=== PATIENT | female | born 1955 | race Caucasian/White ===

== ENCOUNTER 2017-08-13 21:00 | Inpatient (IN) | payer OTHER ==
[2017-08-13] MEDS ORDERED: Pantoprazole 80 MG, Admixture Fee 1 EACH in Sodium Chloride 0.9% 100 ML IVP SCH (21:45)
[2017-08-13] MEDS ORDERED: Octreotide Acetate 100 MCG/ML VIAL SLOW IVP SCH (21:45)
[2017-08-13] MEDS ORDERED: Octreotide Acetate 1,250 MCG in Sodium Chloride 0.9% 250 ML 250 ML IVPB SCH ×2 (21:45→23:07)
[2017-08-13] MEDS ORDERED: Octreotide Acetate 100 MCG/ML VIAL ONE (21:46)
[2017-08-13] MEDS ORDERED: Pantoprazole 40 MG VIAL ONE ×2 (21:46→21:51)
[2017-08-13 21:59] LABS: #Basophils 0.1 thou/uL (0.0-0.2); #Eosinphils 0.1 thou/uL (0.0-0.7); #Lymphocytes 1.3 thou/uL (1.20-3.40); #Monocytes 0.6 thou/uL (0.11-0.59); #Neutrophils 6.8 thou/uL (1.40-6.50); %Basophils 0.6 % (0.0-1.0); %Eosinophils 0.7 % (0.0-10.0); %Lymphocytes 14.6 % (21.0-51.0); %Monocytes 7.1 % (0.0-10.0); Mean Platelet Volume 6.5 fL (7.4-10.4); Red Blood Cell (RBC) Count 1.93 mill/uL (4.20-5.40); White Blood Cell (WBC) Count 8.8 thou/uL (4.8-10.8)
[2017-08-13 22:19] LABS: Troponin I Less than 0.010 ng/mL (< 0.028)
[2017-08-13 22:28] LABS: Lactic Acid - Sepsis 1.4 mmol/L (0.5-2.2)
[2017-08-13] MEDS ORDERED: cefTRIAXone\\ROCEPHIN 1 GM VIAL ONE (22:42)
[2017-08-13] MEDS ORDERED: Sodium Chloride 0.9% 100 ML ONE (22:42)
[2017-08-13 23:08] VITALS: BMI 25.4
[2017-08-13] MEDS ORDERED: Multivitamins, Adult 10 ML, Folic Acid 1 MG, Thiamine HCl 100 MG in Dextrose 5 %-0.45 %... IV SCH ×4 (23:59)
[2017-08-14] MEDS: cefTRIAXone\\ROCEPHIN 1 GM in Sodium Chloride 0.9% 100 ML IVPB SCH (00:21)
[2017-08-14 07:32] LABS: #Basophils 0.1 thou/uL (0.0-0.2); #Eosinphils 0.3 thou/uL (0.0-0.7); #Monocytes 0.5 thou/uL (0.11-0.59); #Neutrophils 3.1 thou/uL (1.40-6.50); %Basophils 1.1 % (0.0-1.0); %Eosinophils 4.4 % (0.0-10.0); %Lymphocytes 33.4 % (21.0-51.0); %Monocytes 8.4 % (0.0-10.0); Hematocrit 26.5 % (36.0-47.0); Mean Platelet Volume 6.9 fL (7.4-10.4); Red Blood Cell (RBC) Count 2.84 mill/uL (4.20-5.40); White Blood Cell (WBC) Count 5.9 thou/uL (4.8-10.8)
[2017-08-14] MEDS: Folic Acid 1 MG TAB PO SCH (07:41)
[2017-08-14] MEDS: Magnesium Oxide 400 MG TAB PO SCH (07:41)
[2017-08-14] MEDS: Multivitamin W/ Minerals 1 TAB PO SCH (07:41)
[2017-08-14 07:49] LABS: ALT (SGPT) 10 U/L (8-55); AST (SGOT) 19 U/L (5-34); Alkaline Phosphatase 42 U/L (40-150); Anion Gap 9 mmol/L (10-20); BUN (Urea Nitrogen) 12 mg/dL (9.8-20.1); Bilirubin, Total 1.4 mg/dL (0.2-1.2); Calc. Creatinine Clearance 60 mL/min (70-130); Calcium 7.5 mg/dL (7.8-10.44); Carbon Dioxide 20 mmol/L (23-31); Chloride 112 mmol/L (98-107); Estimated GFR-MDRD 67; Globulin 2.2 g/dL (2.4-3.5); Magnesium 1.9 mg/dL (1.6-2.6); Phosphorus 4.3 mg/dL (2.3-4.7); Protein, Total 4.7 g/dL (6.0-8.3)
--- NOTE | 2017-08-14 08:50 | HP-2 ---
DATE OF ADMISSION: 08/13/2017 TIME: 2200 hours. CODE STATUS: FULL. PRIMARY CARE PHYSICIAN: Spring dee. ATTENDING: Nain Mayen MD RESIDENT: David Watson DO HISTORIAN: Patient. SPECIALIST: GI, Dr. Wells. CHIEF COMPLAINT: Dizziness and weakness. HISTORY OF PRESENT ILLNESS: A 62-year-old female with a history of alcoholic cirrhosis, who presents via transfer from outside emergency department for symptomatic anemia. Hemoglobin at the time of presentation to the outside ER was 4.5. The patient was transfused to 1 unit packed red blood cells in around to our facility. Upon recheck of hemoglobin in our facility, hemoglobin was 6.3. The patient states that she began to notice black tarry stools that became maroon in color approximately 5 days ago. Additionally, she noticed weakness, shortness of breath, and dizziness. This all started approximately the same time. She states that she has had a previous EGD that showed a hiatal hernia; however, apparently no esophageal varices or ulcers were noted at that time. This EGD was approximately 3 years ago. PAST MEDICAL HISTORY: Hypertension, hypothyroid, alcoholic cirrhosis, anemia, hiatal hernia, and H. pylori-associated gastric ulcer. PAST SURGICAL HISTORY: Hysterectomy and hemorrhoid banding. ALLERGIES: No known drug allergies. MEDICATIONS: Levothyroxine 50 mcg daily, Lasix 20 mg b.i.d., spironolactone 50 mg daily, and potassium 20 mEq b.i.d. SOCIAL HISTORY: Previous half pack per day smoker, at least 80-wrbb-[id number] history. Alcohol, 6-12 beers per day. Drugs, none. REVIEW OF SYSTEMS: General: The patient denies fever, chills, changes in appetite or weight, and night sweats. Admits to fatigue. HEENT: The patient denies vision changes or eye pain. Denies nasal congestion. Respiratory: Denies any cough. Admits to shortness of breath. Denies chest pain, palpitations, or edema. Gastrointestinal: Denies any nausea, vomiting, diarrhea. Admits to GI bleeding, blood in her stool. Genitourinary: Denies incontinence, dysuria. Skin: Denies rash or lesions. Musculoskeletal: Denies pain or tenderness. Neurological: Admits to weakness and near syncope. Denies numbness or tingling. Psychiatric: Denies anxiety and depression. PHYSICAL EXAMINATION: VITAL SIGNS: Blood pressure 125/59, pulse 89, respiratory rate 20, T-max 99.2, pulse ox 99% on room air. Current weight 54.4 kilograms. GENERAL: The patient is alert and oriented x3, in no apparent distress. Has thin body habitus. HEENT: PERRLA, EOMI. Conjunctivae within normal limits. NECK: Supple, without thyromegaly, lymphadenopathy, or bruits. CARDIAC: Regular rate and rhythm with systolic murmur 2/6. RESPIRATORY: Normal effort. Clear to auscultation bilaterally without retractions. SKIN: Warm and dry. ABDOMEN: Soft, nontender. Bowel sounds in all 4 quadrants. No mass resection. Normal rest tone and guaiac is positive. There are external hemorrhoids. EXTREMITIES: No clubbing, cyanosis, or edema. MUSCULOSKELETAL: Tone is within normal limits. NEUROLOGICAL: No focal neurological deficits. Cranial nerves II through XII are grossly intact. LABORATORY DATA: CBC: Hemoglobin 4.5, hematocrit 14.1. White count 11.6, platelets 161, MCV 102. CMP: Sodium 138, potassium 3.4, chloride 106, bicarbonate 16, BUN 14, creatinine 0.82, glucose 166, calcium 7.8, total serum protein 5.2, albumin 2.9, AST 23, ALT 16, alkaline phosphatase 46, total bilirubin 0.8, globulin 2.3, PT of 15.4, INR 1.2, PTT 23.7. Lipase 58. BNP 184. TSH 1.68. EKG is normal sinus rhythm with elongated QTC. Chest x-ray was within normal limits. ASSESSMENT AND PLAN: This 62-year-old female with acute on chronic anemia secondary to a gastrointestinal bleed. 1. Acute gastrointestinal bleed. This is likely to be an upper gastrointestinal rather than lower gastrointestinal. Admit to IMCU. Start Protonix and octreotide drip, give Rocephin 1 gram every 24. Consult GI in the morning. Patient is currently status post 1 unit packed red blood cells, which transfused 2 more units and a repeat CBC in the morning. 2. Microcytic anemia, likely chronic in nature due to the fact that the patient is still able to generally functional with a hemoglobin of 4.5. Microcytic anemia is likely due to a deficiency of basal folate secondary to alcoholism. We will give banana bag. Start replacement of basal folate. 3. Alcoholic cirrhosis. We will check hepatitis immunities. Start ASE protocol without benzos. 4. Hypokalemia. Banana bag as above. Repeat a CMP in the morning. 5. Hypoalbuminemia is likely due to poor nutrition secondary to alcoholism. We will order prealbumin in the morning. 6. Elevated PT secondary to cirrhosis. 7. Hypothyroid. Continue her home levothyroxine. 8. Alcoholism, on ASE protocol as above. MTDD
[2017-08-14] MEDS ORDERED: FLU VACC QS2017-18 36 mo. & older 0.5 ML SYRINGE IM ONE (09:00)
[2017-08-14] MEDS ORDERED: Furosemide 20 MG TAB PO SCH ×2 (09:00→09:36)
[2017-08-14] MEDS ORDERED: Levothyroxine Sodium 50 MCG TAB PO SCH (09:15)
[2017-08-14] MEDS ORDERED: Spironolactone 25 MG TAB PO SCH (09:35)
[2017-08-14] MEDS: Pantoprazole 80 MG, Admixture Fee 1 EACH in Sodium Chloride 0.9% 100 ML IVP SCH ×2 (10:44→21:39)
[2017-08-14] MEDS: Cholecalciferol (Vitamin D3) 400 UNITS TAB PO SCH (10:46)
--- NOTE | 2017-08-14 12:50 | PDOC.FM ---
- Subjective Subjective: No events overnight. Patient had 2 small dark red bowel movements this morning. - Objective MAR Reviewed: Yes Vital Signs & Weight: Vital Signs (12 hours) Temp Pulse Pulse Resp BP BP Pulse Ox 08/14/17 10:49 97.9 F 67 15 107/55 L 98 08/14/17 07:29 98.5 F 66 15 91/55 L 99 08/14/17 06:51 98.5 F 64 18 101/55 L 95 08/14/17 04:01 99.0 F 70 16 97/51 L 96 08/14/17 03:36 98.7 F 72 16 101/54 L 100 08/14/17 03:09 98.9 F 71 18 97/52 L 99 Weight Weight 57.062 kg I&O: 08/13/17 08/14/17 08/15/17 06:59 06:59 06:59 Intake Total 1320 Output Total 600 Balance 720 Result Diagrams: 08/14/17 07:15 08/14/17 07:15 <Nahomy Overton - Last Filed: 08/14/17 12:54> - Objective Vital Signs & Weight: Vital Signs (12 hours) Temp Pulse Pulse Resp BP BP Pulse Ox 08/14/17 10:49 97.9 F 67 15 107/55 L 98 08/14/17 07:29 98.5 F 66 15 91/55 L 99 08/14/17 06:51 98.5 F 64 18 101/55 L 95 08/14/17 04:01 99.0 F 70 16 97/51 L 96 08/14/17 03:36 98.7 F 72 16 101/54 L 100 08/14/17 03:09 98.9 F 71 18 97/52 L 99 Weight Weight 57.062 kg I&O: 08/13/17 08/14/17 08/15/17 06:59 06:59 06:59 Intake Total 1320 Output Total 600 Balance 720 Result Diagrams: 08/14/17 07:15 08/14/17 07:15 <Sascha Multani - Last Filed: 08/14/17 13:24> Phys Exam - Physical Examination Constitutional: NAD HEENT: PERRLA Respiratory: clear to auscultation bilateral Cardiovascular: RRR Gastrointestinal: soft, non-tender, no distention Musculoskeletal: no edema Neurological: moves all 4 limbs Psychiatric: normal affect, A&O x 3 <Nahomy Overton - Last Filed: 08/14/17 12:54> Dx/Plan (1) Acute blood loss anemia Code(s): D62 - ACUTE POSTHEMORRHAGIC ANEMIA Status: Acute Plan: s/p 3 units PRBCs. H/H is stable. Pt is slightly hypotensive. Will continue IV fluids. Will consult GI for possible EGD/colonoscopy. (2) Lower GI bleed Code(s): K92.2 - GASTROINTESTINAL HEMORRHAGE, UNSPECIFIED Status: Acute Plan: See above. Continue Protonix and octreotide gtt. Continue Rocephin for sepsis prophylaxis. (3) Alcoholic cirrhosis of liver without ascites Code(s): K70.30 - ALCOHOLIC CIRRHOSIS OF LIVER WITHOUT ASCITES Status: Acute Plan: Continue Lasix and spironolactone. MELD score of 10 with 6% 3 month mortality. (4) Alcohol abuse Code(s): F10.10 - ALCOHOL ABUSE, UNCOMPLICATED Status: Acute Plan: last drink was over one week ago. Continue ASE protocol. No benzodiazepines ordered at this time. (5) Hypothyroidism Code(s): E03.9 - HYPOTHYROIDISM, UNSPECIFIED Status: Acute Plan: Continue levothyroxine. <Nahomy Overton - Last Filed: 08/14/17 12:54> - Plan Plan: Seen and examined with Dr. Overton. I agree with the H&P and mobley portions repeated or added. I agree with their assessment and plan with the following addendum: ROS: Constitutional: no fever or chills CV: no chest pain or palpitations Resp: no shortness of breath or cough Hold diuretics. Trend Hgb. Tranfuse PRN. Await GI recs. <Sascha Multani - Last Filed: 08/14/17 13:24>
[2017-08-14] MEDS: D5 1/2 NS w/20 mEq KCL 1,000 ML IV SCH ×3 (13:20→21:39)
[2017-08-14] MEDS: Furosemide 20 MG TAB PO SCH (16:04)
[2017-08-14] MEDS ORDERED: GoLYTELY 4,000 ml Bottle PO SCH (18:00)
--- NOTE | 2017-08-14 21:20 | CON ---
GASTROINTESTINAL INPATIENT CONSULTATION NOTE DATE OF CONSULTATION: 08/14/2017 REQUESTING PHYSICIAN: Dr. Overton. REASON FOR CONSULTATION: Gastrointestinal bleeding. HISTORY OF PRESENT ILLNESS: Sunita Rapp is a 62-year-old woman seen in the outpatient setting by my GI colleague, Dr. Walker Wells. She has a known history of alcoholic cirrhosis, which was di agnosed in 2012, at which time, she had presented with ascites, jaundice, and edema as her initial d ecompensation. The patient was able to quit alcohol completely for a while. During her initial catrachito luation, she was found to have peptic ulcer disease with gastric ulcer bleed, also in 2012, she had ascites and was started on diuretics. She had a colonoscopy in 2012, which was normal except for la rge hemorrhoids and actually underwent surgical hemorrhoidectomy, also in 2012, since then, she has done fairly well, pretty well compensated. Continue on low dose diuretics under the direction of Dr Mega Wells, taking lactulose p.r.n. for constipation, MELD score has been pretty well as of his last ev aluation of her a year ago on 07/2016. She was thrombocytopenic, but LFTs were all normal. Total b ilirubin 1.2, creatinine 0.76. Her last EGD was just a year ago on 07/2016 and showed only a 1 cm h iatal hernia and a widely patent Schatzki ring, but there was no evidence of portal hypertensive gas tropathy or any varices. The patient has started drinking again. She will drink 2-6 beers in a day and that will occur about 3 times per week, then about 6 days ago, the patient had a change in bowel movement. She initially had some crampy abdominal discomfort and then started passing black tarry stools. It is actually a bit unclear what the stools looked like, she characterizes it is blood, she says that at first it w as pink and then started getting very dark, but she is not sure if it ever got black, stools have be en documented here as maroon. She had one episode of emesis a couple of days ago, but this was nonb loody. At any rate, she began to feel weakness, dizziness, and shortness of breath and presented to an outside Emergency Department. There she was found to have hemoglobin all the way down to 4.5, n ote hemoglobin was 15 last June. She received 1 unit of transfusion and was transferred here. In itial hemoglobin here was 6.2 and after 2 more units of blood is up to 8.8. She has had two further scant bowel movements here today and documented as reddish maroon. She has no abdominal discomfort . Her weakness was lot better. She is no longer feeling dizzy or shortness of breath. There is no nausea or vomiting. There was never any syncope. She has been started on Protonix and octreotide drips and she has been hemodynamically stable since arrival. REVIEW OF SYSTEMS: Full review of systems including constitutional, head, eyes, ears, nose, throat, GI, , cardiovascular, respiratory, musculoskeletal, and neurologic systems is negative except as noted in the HPI. PAST MEDICAL HISTORY: 1. Alcoholic cirrhosis, diagnosed in 2012. 2. Ascites in 2012, resolved with diuretics. 3. Peptic ulcer disease with bleeding in 2012. 4. Hemorrhoidectomy in 2012, with otherwise normal colonoscopy at that time. 5. Hysterectomy/BSO 6. Hypothyroidism. 7. Hypertension. 8. Ongoing alcohol abuse. ALLERGIES: No known drug allergies. OUTPATIENT MEDICATIONS: Synthroid, Lasix 20 mg b.i.d., spironolactone 50 mg daily, potassium chlori de 20 mEq daily, lactulose p.r.n. INPATIENT MEDICATIONS: Ceftriaxone IV, ferrous sulfate 90 mg daily, vitamin D, folic acid 1 mg michel y, multivitamin, octreotide IV, Protonix IV, thiamine. SOCIAL HISTORY: The patient had been drinking heavily until 2012, at which time she quit for some t apolo, but now she is drinking again 2-6 beers per day about 3 times per week. She is a former smoker . No drug use. PHYSICAL EXAMINATION: VITAL SIGNS: Temperature 97.9, pulse 67, blood pressure 107/55, 98% oxygen saturation on room air. GENERAL: A 62-year-old woman lying in bed comfortably, in no distress. SKIN: No jaundice, no rashes were palpable. EYES: No scleral icterus. Extraocular movements are intact. ENT: Mucous membranes moist, no oral lesions. LYMPH: No submandibular, supraclavicular, or lymphadenopathy. THYROID: Nontender to palpation. HEART: Regular rate and rhythm. LUNGS: Clear to auscultation bilaterally. ABDOMEN: Soft and nontender to palpation, nondistended. Bowel sounds present. EXTREMITIES: No peripheral edema. VESSELS: Radial pulses 2+ bilaterally. NEUROLOGICAL: Cranial nerves II through XII intact bilaterally, no asterixis. LABORATORY STUDIES: Hemoglobin up to 8.8 after 3 units RBC transfusion, was initially 4.5 on presen tation. MCV was 102. WBC 5.9, platelets 93. Sodium 137, potassium 3.8, BUN 12, creatinine 0.85, g lucose 134. Lactic acid 1.4. INR 1.2, total bilirubin 1.4, alkaline phosphatase 42, AST 19, ALT 10 , albumin 2.5. Troponin negative, folic acid 18.9. Vitamin B12 of 378, prealbumin 13. FOBT positi ve. Hepatitis B surface antigen negative, hepatitis B surface antibody positive, hepatitis C antibo dy negative. ASSESSMENT AND PLAN: 1. Gastrointestinal bleeding, subacute over the past 6 days. 2. Anemia, severe, symptomatic. It is difficult to tell from the patient's story whether this represents an upper or lower gastroint estinal bleeding source. Note, she had an EGD just a year ago which demonstrated no evidence of por liz hypertensive gastropathy or varices, but she has certainly been drinking since then. Notes the relatively low BUN, which suggest against an upper gastrointestinal bleed. I agree with both Proton ix and octreotide infusions at this point. The patient is hemodynamically stable, so emergent endos copy is not needed. I will go ahead and have a drink a bowel preparation this evening and we will p anastasia for EGD and colonoscopy tomorrow. Agree with the antibiotics in the meantime as well. Further recommendations following endoscopy. Please call anytime with questions or concerns. Thank you for the consultation.
[2017-08-14] MEDS ORDERED: cefTRIAXone\\ROCEPHIN 1 GM in Sodium Chloride 0.9% 100 ML IVPB SCH (22:00)
[2017-08-15] MEDS: cefTRIAXone\\ROCEPHIN 1 GM in Sodium Chloride 0.9% 100 ML IVPB SCH (02:14)
[2017-08-15 05:17] LABS: Hepatitis A Total ABS Positive (Negative)
[2017-08-15] MEDS: Levothyroxine Sodium 50 MCG TAB PO SCH (05:59)
[2017-08-15 07:18] LABS: #Eosinphils 0.6 thou/uL (0.0-0.7); #Lymphocytes 1.7 thou/uL (1.20-3.40); #Monocytes 0.5 thou/uL (0.11-0.59); #Neutrophils 2.2 thou/uL (1.40-6.50); %Basophils 0.6 % (0.0-1.0); %Eosinophils 11.5 % (0.0-10.0); %Lymphocytes 33.7 % (21.0-51.0); %Monocytes 10.6 % (0.0-10.0); Hematocrit 27.6 % (36.0-47.0); Mean Platelet Volume 6.8 fL (7.4-10.4); Red Blood Cell (RBC) Count 2.91 mill/uL (4.20-5.40)
--- NOTE | 2017-08-15 08:41 | PDOC.FM ---
- Subjective Subjective: No adverse events overnight. Patient doing well. She has no complaints. - Objective MAR Reviewed: Yes Vital Signs & Weight: Vital Signs (12 hours) Temp Pulse Resp BP BP Pulse Ox 08/15/17 03:10 97.9 F 61 16 98/46 L 99 08/14/17 23:51 98.2 F 71 16 106/55 L 99 Weight Weight 57.635 kg I&O: 08/14/17 08/15/17 08/16/17 06:59 06:59 06:59 Intake Total 1320 7152 Output Total 600 1100 Balance 720 6052 Result Diagrams: 08/15/17 07:05 08/14/17 07:15 <Nahomy Overton - Last Filed: 08/15/17 09:45> - Objective Vital Signs & Weight: Vital Signs (12 hours) Temp Pulse Resp BP BP Pulse Ox 08/15/17 03:10 97.9 F 61 16 98/46 L 99 08/14/17 23:51 98.2 F 71 16 106/55 L 99 Weight Weight 57.635 kg I&O: 08/14/17 08/15/17 08/16/17 06:59 06:59 06:59 Intake Total 1320 7152 Output Total 600 1100 Balance 720 6052 Result Diagrams: 08/15/17 07:05 08/14/17 07:15 <Sascha Multani - Last Filed: 08/15/17 10:20> Phys Exam - Physical Examination Constitutional: NAD Respiratory: clear to auscultation bilateral Cardiovascular: RRR Gastrointestinal: soft, non-tender Musculoskeletal: edema present Neurological: moves all 4 limbs Psychiatric: A&O x 3 Skin: no rash <Nahomy Overton - Last Filed: 08/15/17 09:45> Dx/Plan (1) Lower GI bleed Code(s): K92.2 - GASTROINTESTINAL HEMORRHAGE, UNSPECIFIED Status: Acute Plan: Pt to have EGD and colonoscopy today; we will await results and GI recommendations. Continue Protonix and octreotide gtt. Continue Rocephin for sepsis prophylaxis. (2) Acute blood loss anemia Code(s): D62 - ACUTE POSTHEMORRHAGIC ANEMIA Status: Resolved Plan: s/p 3 units PRBCs. H/H is stable at 9.1 today. (3) Alcoholic cirrhosis of liver without ascites Code(s): K70.30 - ALCOHOLIC CIRRHOSIS OF LIVER WITHOUT ASCITES Status: Acute Plan: Continue Lasix and spironolactone. MELD score of 10 with 6% 3 month mortality. (4) Alcohol abuse Code(s): F10.10 - ALCOHOL ABUSE, UNCOMPLICATED Status: Acute Plan: last drink was over one week ago. Continue ASE protocol. No benzodiazepines ordered at this time. (5) Hypothyroidism Code(s): E03.9 - HYPOTHYROIDISM, UNSPECIFIED Status: Acute Plan: Continue levothyroxine. <Nahomy Overton - Last Filed: 08/15/17 09:45> - Plan Plan: Seen and examined with Dr. Overton. Shepherd portions of the history and physical exam repeated. I agree with their assessment and plan with the following addendum. ROS: no f/c/cp/sob/n/v/abd pain Await endoscopy. D/c gtts afterwards. D/c home if stable. <Sascha Multani - Last Filed: 08/15/17 10:20>
[2017-08-15] MEDS ORDERED: Propofol 200 MG/20 ML VIAL ONE (11:55)
[2017-08-15] MEDS ORDERED: Lidocaine 1% PF 5 ML VIAL ONE (11:55)
[2017-08-15] MEDS ORDERED: PHENYLEPHRINE-NS 100 MCG/ML 10 ML SYRINGE ONE (11:55)
[2017-08-15] MEDS ORDERED: Promethazine HCl 25 MG/ML VIAL SLOW IVP PRN (12:28)
[2017-08-15] MEDS ORDERED: Promethazine HCl 25 MG/ML VIAL IM PRN (12:28)
[2017-08-15] MEDS ORDERED: Ondansetron HCl/PF 4 MG/2 ML Vial IVP PRN (12:28)
--- NOTE | 2017-08-15 13:00 | OP ---
DATE OF PROCEDURE: 08/15/2017 SURGEON: Andrea Love M.D. [employer] SURGEON: None. PROCEDURES: 1. Esophagogastroduodenoscopy, diagnostic. 2. Colonoscopy, diagnostic. INDICATION: 1. Acute gastrointestinal bleeding. 2. Acute blood loss anemia. 3. Alcoholic cirrhosis, otherwise well compensated. MEDICATIONS: See anesthesia record. FINDINGS: After discussion of the risks, benefits and alternatives of the procedure, informed conse nt was obtained and witnessed. Pre-endoscopic cardiopulmonary examination was satisfactory. Timeou t was performed before sedation was achieved. Sedation was achieved with anesthesia assistance in [facility] endoscopy unit. A Pentax adult upper endoscope was placed into the oropharynx and passed through the cricopharyngeus under direct visualization. The esophageal mucosa appeared normal throughout w ith a normal-appearing Z-line with no evidence of any esophageal varices. The endoscope was advance d into the stomach. Forward and retroflexed views of the entire gastric mucosa were obtained. The gastric mucosa appeared normal throughout. There was no evidence of portal hypertensive gastropathy . No ulcerations or erosions. No gastric varices, no evidence of blood in the stomach. The endosc ope was passed through a normal appearing pylorus and into the first, second, and third portions of the duodenum which all appeared normal with no bleeding or bleeding lesions seen. The upper endosco pe was then completely withdrawn and the patient was repositioned. Digital rectal exam was performed which demonstrated some external hemorrhoidal skin tags. A Pentax adult colonoscope was inserted into the anus and passed forward to the cecum in the usual fashion. The cecal base was identified by the appendiceal orifice as well as the ileocecal valve. The termi nal ileum was then intubated and examined to a distance of 15 cm. The endoscope was slowly withdraw n in a gradual and circumferential manner with careful examination of the terminal ileal and colonic mucosa. The quality of the prep was good. There was fresh red blood throughout the entire examine of extent of the terminal ileum. This was coating the johnson of the terminal ileum and there appear ed to be fresh blood, even beyond the extent to which I could examine. The examined portion of the terminal ileum appeared normal, leading me to conclude that her bleeding is likely coming from the m ore proximal small bowel. The examination of the colon was completely unremarkable. There was a sm all amount of fresh blood throughout the colon, but this was able to be washed off and a good examin ation of the entire colonic mucosa were obtained. There were no diverticula, no mass lesions. No b leeding lesions noted throughout the entire colon. There were small internal hemorrhoids on retrofl exion in the rectum The colonoscope was completely withdrawn and the patient allowed to recover. Th e patient tolerated the procedure well. There were no immediate post-procedure complications. IMPRESSION: 1. Normal esophagogastroduodenoscopy. 2. Fresh blood within the terminal ileum examined to 15 cm in extent, with further fresh blood seen proximal to the extent of the scope advancement. No bleeding lesions seen in the examined portion of the terminal ileum. 3. Some older, but still fresh blood in the colon, but otherwise normal colonoscopy throughout. 4. Small internal hemorrhoids. 5. Obscure overt gastrointestinal bleeding. RECOMMENDATIONS: 1. Send the patient for a tagged RBC scan to try to localize in the small bowel. 2. Following the scan, a clear liquid diet for now. 3. Octreotide and Protonix drips could be discontinued. 4. Would continue the IV antibiotics. Please call with any questions or concerns.
[2017-08-15] MEDS: Cholecalciferol (Vitamin D3) 400 UNITS TAB PO SCH (15:05)
[2017-08-15] MEDS: Spironolactone 25 MG TAB PO SCH (15:05)
[2017-08-15] MEDS: Furosemide 20 MG TAB PO SCH ×2 (15:06→15:08)
[2017-08-15] MEDS: Folic Acid 1 MG TAB PO SCH (15:06)
[2017-08-15] MEDS: Magnesium Oxide 400 MG TAB PO SCH (15:07)
[2017-08-15] MEDS: Multivitamin W/ Minerals 1 TAB PO SCH (15:07)
--- NOTE | 2017-08-15 19:03 | NM ---
RADIONUCLIDE GI BLEEDING SCAN: 08/15/17 HISTORY: GI bleeding for six days. Patient received three units of blood. The last bleeding episode was two h ours ago with dark bloody stool. RADIOPHARMACEUTICAL: 27 millicuries technetium 99m labeled RBCs injected intravenously. FINDINGS: No abnormal areas of tracer localization with peristalsis movement seen during two hours of imaging of the abdomen and pelvis. IMPRESSION: No evidence of active GI bleeding during imaging. POS: ADITHYA
[2017-08-15] MEDS: D5 1/2 NS w/20 mEq KCL 1,000 ML IV SCH ×2 (19:12→20:12)
[2017-08-16] MEDS: cefTRIAXone\\ROCEPHIN 1 GM in Sodium Chloride 0.9% 100 ML IVPB SCH (00:34)
[2017-08-16] MEDS ORDERED: Sodium Chloride 0.9% 500 ML IVPB SCH (04:00)
[2017-08-16 04:56] LABS: #Eosinphils 0.5 thou/uL (0.0-0.7); #Lymphocytes 1.5 thou/uL (1.20-3.40); #Monocytes 0.4 thou/uL (0.11-0.59); %Basophils 0.4 % (0.0-1.0); %Lymphocytes 33.1 % (21.0-51.0); %Monocytes 9.1 % (0.0-10.0); Hematocrit 26.1 % (36.0-47.0); Red Blood Cell (RBC) Count 2.66 mill/uL (4.20-5.40); White Blood Cell (WBC) Count 4.4 thou/uL (4.8-10.8)
[2017-08-16] MEDS: Levothyroxine Sodium 50 MCG TAB PO SCH (05:21)
--- NOTE | 2017-08-16 07:02 | PDOC.FM ---
- Subjective Subjective: Patient feels well this morning with no complaints. She remains hypotensive, but is asymptomatic. - Objective MAR Reviewed: Yes Vital Signs & Weight: Vital Signs (12 hours) Temp Pulse Resp BP BP Pulse Ox 08/16/17 05:20 89/61 L 08/16/17 04:27 85/51 L 08/16/17 03:57 77 96/42 L 08/16/17 03:45 66 86/48 L 08/16/17 03:27 98.5 F 63 16 79/42 L 86/44 L 97 08/15/17 23:37 98.1 F 71 20 99/51 L 98 08/15/17 20:00 98.2 F 61 18 100 08/15/17 19:21 98.2 F 61 18 117/61 100 Weight Weight 57.635 kg I&O: 08/15/17 08/16/17 08/17/17 06:59 06:59 06:59 Intake Total 7152 2210 Output Total 1100 1051 Balance 6052 1159 Result Diagrams: 08/16/17 04:08 08/14/17 07:15 <Nahomy Overton - Last Filed: 08/16/17 10:49> - Objective Vital Signs & Weight: Vital Signs (12 hours) Temp Pulse Resp BP BP Pulse Ox 08/16/17 11:46 98.4 F 65 18 128/67 99 08/16/17 08:00 97.7 F 68 18 08/16/17 07:18 97.7 F 68 18 78/35 L 90 L 08/16/17 05:20 89/61 L 08/16/17 04:27 85/51 L 08/16/17 03:57 77 96/42 L 08/16/17 03:45 66 86/48 L 08/16/17 03:27 98.5 F 63 16 79/42 L 86/44 L 97 Weight Weight 127 lb 1 oz I&O: 08/15/17 08/16/17 08/17/17 06:59 06:59 06:59 Intake Total 7152 2210 Output Total 1100 1051 Balance 6052 1159 Result Diagrams: 08/16/17 04:08 08/14/17 07:15 <Yris Sol - Last Filed: 08/16/17 13:00> Phys Exam - Physical Examination Constitutional: NAD Respiratory: clear to auscultation bilateral Cardiovascular: RRR Gastrointestinal: soft, non-tender, no distention <Nahomy Overton - Last Filed: 08/16/17 10:49> Dx/Plan (1) Lower GI bleed Code(s): K92.2 - GASTROINTESTINAL HEMORRHAGE, UNSPECIFIED Status: Acute Plan: Pt had 2 maroon colored stools this morning. Source of bleeding not identified on scopes or RBC scan. Will continue to monitor pt over the weekend. transfuse as needed. Will discuss with Dr. Love next steps, possibly to include capsule endoscopy. (2) Acute blood loss anemia Code(s): D62 - ACUTE POSTHEMORRHAGIC ANEMIA Status: Resolved Plan: Hgb 8.2 today. (3) Alcoholic cirrhosis of liver without ascites Code(s): K70.30 - ALCOHOLIC CIRRHOSIS OF LIVER WITHOUT ASCITES Status: Acute Plan: Continue Lasix and spironolactone. MELD score of 10 with 6% 3 month mortality. (4) Alcohol abuse Code(s): F10.10 - ALCOHOL ABUSE, UNCOMPLICATED Status: Acute Plan: last drink was over one week ago. Continue ASE protocol. No benzodiazepines ordered at this time. (5) Hypothyroidism Code(s): E03.9 - HYPOTHYROIDISM, UNSPECIFIED Status: Acute Plan: Continue levothyroxine. <Nahomy Overton - Last Filed: 08/16/17 10:49> Attending Addendum - Attending Addendum I personally evaluated the patient and discussed the management with Dr. Overton. I agree with the History, Examination, Assessment and Plan documented above with any addition or exceptions noted below. Patient continues to have hematochezia. EGD, colonoscopy and tagged RBC scan show no source of bleeding. She feels much better after transfusion. BP's are low, but she is asymptomatic. Await further recommendation per GI. <Yris Sol - Last Filed: 08/16/17 13:00>
[2017-08-16] MEDS: Spironolactone 25 MG TAB PO SCH (09:35)
[2017-08-16] MEDS: Cholecalciferol (Vitamin D3) 400 UNITS TAB PO SCH (09:36)
[2017-08-16] MEDS: Folic Acid 1 MG TAB PO SCH (09:36)
[2017-08-16] MEDS: Magnesium Oxide 400 MG TAB PO SCH (09:37)
[2017-08-16] MEDS: Multivitamin W/ Minerals 1 TAB PO SCH (09:37)
[2017-08-16] MEDS: Furosemide 20 MG TAB PO SCH ×2 (10:31→16:15)
--- NOTE | 2017-08-16 11:36 | PRG ---
DATE OF SERVICE: 08/16/2017 GI INPATIENT DAILY PROGRESS NOTE SUBJECTIVE: Ms. Hook had two more maroon colored bowel movements this morning. She still does not have any abdominal pain, nausea or vomiting. She otherwise has no complaints. Hemoglobin did d ecline again from 9.1-8.2. OBJECTIVE: VITAL SIGNS: Temperature 97.7, pulse 68, blood pressure 78/35, 90% oxygen saturation on room air. GENERAL: No acute distress. HEART: Regular rate and rhythm. LUNGS: Clear to auscultation bilaterally. ABDOMEN: Soft and nontender to palpation. EXTREMITIES: No peripheral edema. LABORATORY STUDIES: Hemoglobin down to 8.2, WBC 4.4, platelets 103. Sodium 137, potassium 3.8, BUN 12, and creatinine 0.85. ASSESSMENT AND PLAN: 1. Obscure overt gastrointestinal bleeding, appears to be from unknown small bowel source. 2. Alcoholic cirrhosis, well compensated. 3. Acute blood loss anemia. I note the tagged RBC scan did not show evidence of active gastrointes tinal bleeding. Obviously, she is having some blood loss, but this appears to be happening slower t miranda the threshold to be picked up by the scan. Based on endoscopic investigation, this is coming fr om the small bowel which could not be reached by the endoscope. The next step of evaluation would b e capsule endoscopy, but we are unable to get this done over the weekend here. I do not think she i s bleeding briskly enough to warrant urgent surgical consultation on an inpatient basis. At this ti me, I would advise continuing the antibiotics, letting her eat, and observing her for evidence of wo rsening overt bleeding, trending hemoglobin and hematocrit, transfusion if necessary. Next week, de pending on how she is doing clinically, we will try to arrange for capsule endoscopy. Please call with questions or concerns.
[2017-08-16] MEDS ORDERED: Heparin 1,000 UNITS/ML VIAL ONE (15:35)
[2017-08-16] MEDS ORDERED: Acetaminophen 325 MG TAB PO SCH (19:45)
[2017-08-17] MEDS: cefTRIAXone\\ROCEPHIN 1 GM in Sodium Chloride 0.9% 100 ML IVPB SCH (02:40)
[2017-08-17] MEDS: Levothyroxine Sodium 50 MCG TAB PO SCH (05:34)
[2017-08-17 05:49] LABS: #Eosinphils 0.6 thou/uL (0.0-0.7); #Lymphocytes 1.4 thou/uL (1.20-3.40); #Monocytes 0.5 thou/uL (0.11-0.59); #Neutrophils 1.7 thou/uL (1.40-6.50); %Basophils 0.3 % (0.0-1.0); %Eosinophils 13.3 % (0.0-10.0); %Lymphocytes 34.5 % (21.0-51.0); %Monocytes 12.1 % (0.0-10.0); Hematocrit 26.8 % (36.0-47.0); Mean Platelet Volume 6.7 fL (7.4-10.4); Red Blood Cell (RBC) Count 2.77 mill/uL (4.20-5.40); White Blood Cell (WBC) Count 4.2 thou/uL (4.8-10.8)
--- NOTE | 2017-08-17 07:53 | PDOC.FM ---
- Subjective Subjective: Patient doing well this morning with no complaints. No adverse events overnight. - Objective MAR Reviewed: Yes Vital Signs & Weight: Vital Signs (12 hours) Temp Pulse Resp BP Pulse Ox 08/17/17 04:00 98.1 F 69 18 99/54 L 100 08/16/17 23:00 99.1 F 75 20 93/47 L 98 08/16/17 20:00 98.2 F 71 18 100 Weight Weight 57.697 kg I&O: 08/16/17 08/17/17 08/18/17 06:59 06:59 06:59 Intake Total 2210 1650 Output Total 1051 800 Balance 1159 850 Result Diagrams: 08/17/17 05:22 08/14/17 07:15 <Nahomy Overton - Last Filed: 08/17/17 07:56> - Objective Vital Signs & Weight: Vital Signs (12 hours) Temp Pulse Resp BP Pulse Ox 08/17/17 11:48 98.7 F 71 18 102/57 L 95 08/17/17 08:00 98.5 F 63 18 113/62 96 08/17/17 07:47 98.1 F 69 18 08/17/17 04:00 98.1 F 69 18 99/54 L 100 Weight Weight 127 lb 3.2 oz I&O: 08/16/17 08/17/17 08/18/17 06:59 06:59 06:59 Intake Total 2210 1650 Output Total 1051 800 Balance 1159 850 Result Diagrams: 08/17/17 05:22 08/14/17 07:15 <Yris Sol - Last Filed: 08/17/17 13:16> Phys Exam - Physical Examination Constitutional: NAD Respiratory: clear to auscultation bilateral Cardiovascular: RRR Gastrointestinal: soft, non-tender Musculoskeletal: no edema Psychiatric: A&O x 3 <Nahomy Overton - Last Filed: 08/17/17 07:56> Dx/Plan (1) Lower GI bleed Code(s): K92.2 - GASTROINTESTINAL HEMORRHAGE, UNSPECIFIED Status: Acute Plan: Likely from small intestine source H/H stable. No bleeding is stools yesterday. Pt is stable will discuss with GI possibility of d/c today with outpatient follow-up for capsule endoscopy. (2) Acute blood loss anemia Code(s): D62 - ACUTE POSTHEMORRHAGIC ANEMIA Status: Resolved Plan: H/H stable. (3) Alcoholic cirrhosis of liver without ascites Code(s): K70.30 - ALCOHOLIC CIRRHOSIS OF LIVER WITHOUT ASCITES Status: Acute Plan: Continue Lasix and spironolactone. MELD score of 10 with 6% 3 month mortality. (4) Alcohol abuse Code(s): F10.10 - ALCOHOL ABUSE, UNCOMPLICATED Status: Acute Plan: last drink was over one week ago. Continue ASE protocol. No benzodiazepines ordered at this time. (5) Hypothyroidism Code(s): E03.9 - HYPOTHYROIDISM, UNSPECIFIED Status: Acute Plan: Continue levothyroxine. <Nahomy Overton - Last Filed: 08/17/17 07:56> Attending Addendum - Attending Addendum I personally evaluated the patient and discussed the management with Dr. Overton. I agree with the History, Examination, Assessment and Plan documented above with any addition or exceptions noted below. Patient doing much better. Hemoglobin stable and she has no more hematochezia. She is tolerating a diet and is stable for discharge. She will follow-up with GI to arrange capsule endoscopy this week. <Yris Sol - Last Filed: 08/17/17 13:16>
[2017-08-17] MEDS: Spironolactone 25 MG TAB PO SCH (08:22)
[2017-08-17] MEDS: Cholecalciferol (Vitamin D3) 400 UNITS TAB PO SCH (08:23)
[2017-08-17] MEDS: Furosemide 20 MG TAB PO SCH ×2 (08:23→14:43)
[2017-08-17] MEDS: Magnesium Oxide 400 MG TAB PO SCH (08:23)
[2017-08-17] MEDS: Folic Acid 1 MG TAB PO SCH (08:23)
[2017-08-17] MEDS: Multivitamin W/ Minerals 1 TAB PO SCH (08:24)
--- NOTE | 2017-08-17 09:51 | PRG ---
DATE OF SERVICE: 08/17/2017 SUBJECTIVE: Ms. Rapp is feeling very well. She is tolerating her diet. She is having some bow el movements and does not see any gross blood or melena in them anymore. She has been hemodynamical ly stable. Hemoglobin came up from 8.2 to 8.7 on its own from yesterday OBJECTIVE: VITAL SIGNS: Temperature 98.5, pulse 63, blood pressure 113/62, 96% oxygen saturation on room air. GENERAL: No acute distress, appearing well. HEART: Regular rate and rhythm. LUNGS: Clear to auscultation bilaterally. ABDOMEN: Soft and nontender to palpation. EXTREMITIES: No peripheral edema. LABORATORY STUDIES: WBC 4.2, hemoglobin 8.7, platelets 102. ASSESSMENT AND PLAN: 1. Obscure overt gastrointestinal bleeding, appears to have slowed down or resolved. 2. Acute blood loss anemia, stabilized. 3. Alcoholic cirrhosis. We need a plan for capsule endoscopy this week. Given the patient's clini martha stability and it appears resolution of bleeding for now, I think it would be okay to discharge t he patient home for close outpatient follow up this week in our clinic for capsule endoscopy. Given her cirrhosis and GI bleeding, I do think she should be discharged on an oral antibiotic. I would discharge her on ciprofloxacin 500 mg b.i.d. for the next 7 days. I advised her and her daughter to have a low threshold for representation to the emergency department, if she starts getting lighthea ded or again starts passing a large amount of blood in her stool.
[2017-08-17 11:50] VITALS: BP 102/57; TEMP 98.7
== END 2017-08-17 16:00 | disposition home or self-care (01) | DRG 378 ==
LOC: ERS 21:00 → IMCU/EMU 21:40
PROVIDERS: ADMIT Family Medicine; ATTEND Family Medicine
PROC: 30233N1 Transfusion of Nonautologous Red Blood Cells into Peripheral Vein, Percutaneous Approach (ICD-10-PCS; 2017-08-13)
PROC: 0DJ08ZZ Inspection of Upper Intestinal Tract, Via Natural or Artificial Opening Endoscopic (ICD-10-PCS; principal; 2017-08-15)
PROC: 0DJD8ZZ Inspection of Lower Intestinal Tract, Via Natural or Artificial Opening Endoscopic (ICD-10-PCS; 2017-08-15)
DX: K92.2 Gastrointestinal hemorrhage, unspecified (principal); D62 Acute posthemorrhagic anemia; E46 Unspecified protein-calorie malnutrition; K70.30 Alcoholic cirrhosis of liver without ascites; E88.09 Other disorders of plasma-protein metabolism, not elsewhere classified; R53.1 Weakness; I10 Essential (primary) hypertension; E03.9 Hypothyroidism, unspecified; K44.9 Diaphragmatic hernia without obstruction or gangrene; Z87.891 Personal history of nicotine dependence; D64.9 Anemia, unspecified; E87.6 Hypokalemia; F10.20 Alcohol dependence, uncomplicated; K64.8 Other hemorrhoids; Z68.25 Body mass index [BMI] 25.0-25.9, adult
CPT/HCPCS: 36415; 36430; 78278; 80053; 82607; 82746; 83605; 83735; 84100; 84134; 85025; 86704; 86706; 86709; 86803; 86850; 86900; 86901; 87340; 90471; 90682; 93005; 96365; 96375; 96376; A9604; C9113; G0008; J0696; J1644; J2001; J2354; J2704; J3411; J3475; J7042; J7050; P9016; Q2036

== ENCOUNTER 2017-12-12 21:46 | Inpatient (IN) | payer OTHER ==
[2017-12-12 22:16] LABS: Hemoglobin 7.1 g/dL (12.0-16.0); Mean Corpuscular HGB CONC 32.2 g/dL (32.0-36.0); Mean Corpuscular Hemoglobin 24.1 pg (27.0-31.0); Mean Corpuscular Volume 74.7 fl (81.0-99.0); Mean Platelet Volume 9.2 fL (7.4-10.4); Platelet Count 139 thou/uL (130-400); RBC Distribution Width 18.5 % (11.5-14.5); Red Blood Cell (RBC) Count 2.94 mill/uL (4.20-5.40)
[2017-12-12 22:34] LABS: ALT (SGPT) 10 U/L (8-55); AST (SGOT) 17 U/L (5-34); Albumin 3.2 g/dL (3.4-4.8); Alkaline Phosphatase 98 U/L (40-150); Anion Gap 13 mmol/L (10-20); BUN (Urea Nitrogen) 18 mg/dL (9.8-20.1); Bilirubin, Total 0.7 mg/dL (0.2-1.2); Calc. Creatinine Clearance 0 mL/min (70-130); Calcium 8.3 mg/dL (7.8-10.44); Carbon Dioxide 21 mmol/L (23-31); Chloride 106 mmol/L (98-107); Estimated GFR-MDRD 66; Glucose 145 mg/dL (80-115); INR-International Normal Ratio 1.2; PTT 27.7 SEC (22.9-36.1); Potassium 4.1 mmol/L (3.5-5.1); Protein, Total 6.2 g/dL (6.0-8.3); Prothrombin Time 15.7 SEC (12.0-14.7); Sodium 136 mmol/L (136-145)
[2017-12-12 22:37] LABS: #Eosinphils 0.1 thou/uL (0.0-0.7); #Lymphocytes 1.2 thou/uL (1.20-3.40); #Monocytes 0.6 thou/uL (0.11-0.59); #Neutrophils 8.1 thou/uL (1.40-6.50); %Basophils 0.4 % (0.0-1.0); %Eosinophils 1.1 % (0.0-10.0); %Lymphocytes 12.3 % (21.0-51.0); %Monocytes 5.6 % (0.0-10.0); %Neutrophils 80.6 % (42.0-75.0); Anisocytosis SLIGHT = 6-15 cells (100X) (0-5/hpf); MDiff Complete? YES; Microcytosis SLIGHT = 6-15 cells (100X) (0-5/hpf)
[2017-12-13] MEDS ORDERED: Ondansetron ODT 4 MG TAB PO PRN (03:09)
[2017-12-13] MEDS ORDERED: Acetaminophen 325 MG TAB PO PRN (03:09)
[2017-12-13] MEDS ORDERED: HYDROcodone/Acetaminophen 5/325 mg Tablet PO PRN (03:09)
--- NOTE | 2017-12-13 03:44 | HP ---
CHIEF COMPLAINT: Bright red blood per rectum. HISTORY OF PRESENT ILLNESS: The patient is a 62-year-old female who presents with a 1 day history of bright red blood per rectum. The patient noticed this after she had gone to the bathroom yesterday. The patient states that it occurred today; however, blood was a little bit darker. The patient has had prior GI bleed in August of last year. She had had a workup with no active bleeding seen. She had a PillCam as well as an outpatient without any bleeding seen on that study. Otherwise, the rahel ent denied any shortness of breath or fatigue. She does not have any nausea, vomiting, or hematemesi s. PAST MEDICAL HISTORY: The patient is significant for CHF, cirrhosis, hypothyroidism. PAST SURGICAL HISTORY: The patient has had prior tubal ligation, hemorrhoidectomy, and hysterectomy. SOCIAL HISTORY: The patient had been heavy drinker in the past; however, is no longer drinking. She also was a former tobacco user and smokes cigarettes; however, she is no longer smoking as well. HOME MEDICATIONS: The patient is on Klor-Con, Synthroid, spironolactone, Lasix, and Protonix. REVIEW OF SYSTEMS: Please see HPI. Rest of 14-point review of system is negative. PHYSICAL EXAMINATION: VITAL SIGNS: Blood pressure 118/67, pulse 109, respirations 19, patient's temperature is 92. GENERAL: The patient is awake, alert, and oriented x3, in no acute distress. HEENT: Pupils are round and reactive to light and accommodation. Extraocular muscles intact. TMs a re clear. No erythema in throat. NECK: No JVD, no lymphadenopathy. HEART: Regular rate and rhythm. LUNGS: Clear to auscultation bilaterally. ABDOMEN: Positive bowel sounds. Soft, nontender, nondistended. EXTREMITIES: No clubbing, cyanosis or edema. NEUROLOGIC: Cranial nerves II-XII are grossly intact. PSYCHIATRIC: The patient is cooperative and answering questions appropriately. LABORATORY AND X-RAY DATA: The patient's CBC: White count was 10, H and H 7 and 22 with platelet of 139. PT was 15, INR is 1.2. Sodium is 136, potassium 4.1, chloride 106, bicarbonate 21, BUN 18, cr eatinine 0.8. ASSESSMENT AND PLAN: 1. Gastrointestinal bleed, status post 1 unit PRBCs in the ER. We will repeat H and H in the mornin g and monitor. Transfuse as needed. GI will be consulted in the morning. Continue with proton-pump inhibitors and hold spironolactone and Lasix for now. 2. Hypothyroidism. Continue Synthroid. 3. Code status: The patient is FULL CODE.
[2017-12-13 04:02] LABS: Hemoglobin 7.7 g/dL (12.0-16.0); Mean Corpuscular Hemoglobin 25.8 pg (27.0-31.0); Mean Corpuscular Volume 78.3 fl (81.0-99.0); RBC Distribution Width 19.4 % (11.5-14.5); Red Blood Cell (RBC) Count 2.98 mill/uL (4.20-5.40); White Blood Cell (WBC) Count 7.6 thou/uL (4.8-10.8)
[2017-12-13 04:10] LABS: Anion Gap 12 mmol/L (10-20); BUN (Urea Nitrogen) 15 mg/dL (9.8-20.1); Calc. Creatinine Clearance 0 mL/min (70-130); Calcium 8.5 mg/dL (7.8-10.44); Carbon Dioxide 20 mmol/L (23-31); Chloride 110 mmol/L (98-107); Estimated GFR-MDRD 84; Glucose 120 mg/dL (80-115); Potassium 3.7 mmol/L (3.5-5.1); Sodium 138 mmol/L (136-145)
[2017-12-13 04:17] LABS: #Basophils 0.1 thou/uL (0.0-0.2); #Eosinphils 0.2 thou/uL (0.0-0.7); #Lymphocytes 2.1 thou/uL (1.20-3.40); #Monocytes 0.6 thou/uL (0.11-0.59); #Neutrophils 4.7 thou/uL (1.40-6.50); %Basophils 1.1 % (0.0-1.0); %Lymphocytes 27.1 % (21.0-51.0); %Monocytes 7.5 % (0.0-10.0); %Neutrophils 61.4 % (42.0-75.0); Mean Platelet Volume 9.4 fL (7.4-10.4); PLT Morphology Comment Appears Decreased; Platelet Count 117 thou/uL (130-400)
[2017-12-13 09:43] LABS: #Basophils 0.1 thou/uL (0.0-0.2); #Eosinphils 0.1 thou/uL (0.0-0.7); #Lymphocytes 1.3 thou/uL (1.20-3.40); #Monocytes 0.5 thou/uL (0.11-0.59); #Neutrophils 2.8 thou/uL (1.40-6.50); %Basophils 1.2 % (0.0-1.0); %Eosinophils 2.8 % (0.0-10.0); %Lymphocytes 27.5 % (21.0-51.0); %Monocytes 10.8 % (0.0-10.0); %Neutrophils 57.8 % (42.0-75.0); Hemoglobin 7.3 g/dL (12.0-16.0); Mean Corpuscular HGB CONC 31.9 g/dL (32.0-36.0); Mean Corpuscular Hemoglobin 25.2 pg (27.0-31.0); Mean Platelet Volume 9.9 fL (7.4-10.4); Platelet Count 102 thou/uL (130-400); RBC Distribution Width 19.4 % (11.5-14.5); Red Blood Cell (RBC) Count 2.88 mill/uL (4.20-5.40); White Blood Cell (WBC) Count 4.9 thou/uL (4.8-10.8)
[2017-12-13 15:06] VITALS: BMI 28.8
[2017-12-13 15:17] LABS: #Basophils 0.1 thou/uL (0.0-0.2); #Eosinphils 0.3 thou/uL (0.0-0.7); #Lymphocytes 2.3 thou/uL (1.20-3.40); #Monocytes 0.6 thou/uL (0.11-0.59); #Neutrophils 2.8 thou/uL (1.40-6.50); %Basophils 1.3 % (0.0-1.0); %Eosinophils 4.6 % (0.0-10.0); %Lymphocytes 38.1 % (21.0-51.0); %Monocytes 9.6 % (0.0-10.0); %Neutrophils 46.5 % (42.0-75.0); Hemoglobin 7.5 g/dL (12.0-16.0); Mean Corpuscular HGB CONC 32.5 g/dL (32.0-36.0); Mean Corpuscular Hemoglobin 25.8 pg (27.0-31.0); Mean Corpuscular Volume 79.5 fl (81.0-99.0); Mean Platelet Volume 9.2 fL (7.4-10.4); Platelet Count 124 thou/uL (130-400); RBC Distribution Width 19.4 % (11.5-14.5); Red Blood Cell (RBC) Count 2.91 mill/uL (4.20-5.40)
[2017-12-13] MEDS: Sodium Chloride 0.9% 1,000 ML IV SCH ×2 (16:14→16:15)
[2017-12-13] MEDS: Levothyroxine Sodium 50 MCG TAB PO SCH (16:15)
[2017-12-13 21:06] LABS: Hemoglobin 6.1 g/dL (12.0-16.0)
[2017-12-13] MEDS: Pantoprazole 40 MG VIAL IVP SCH (21:59)
--- NOTE | 2017-12-14 02:57 | CON ---
DATE OF CONSULTATION: 12/13/2017 CHIEF COMPLAINT: Rectal bleeding. HISTORY OF PRESENT ILLNESS: Ms. Rapp is a 62-year-old woman who has had prior GI bleeds of obscu re origin last fall. She has done well over the last several months until the night before last she had onset of red bloody liquidy stool. The next day she had 3 red bloody liquidy stools in the after noon, so she came onto the emergency room, that was last night. Last night, she had [address] ol in the ER and then one in the room this morning. This evening, she has had 2 red bloody stools wi th the last one having been around 8:00 p.m. She has had no nausea or vomiting. No diarrhea or cons tipation prior to this. No chest pain or shortness of breath. She does have sharp lower abdominal p ain when she bends forward in the car or tie her shoes, but this pain lasts for a minute and goes boom y when she sits up straight. She also gets some epigastric pain when she lies flat in the bathtub so metimes. She has had no weight loss. PAST MEDICAL HISTORY: Cirrhosis of liver secondary to alcohol. She drank she says from 07/2016 up u ntil 08/2017. She has been off alcohol since then. She quit smoking around 2014. She has had a his tory of ascites. She had a peptic ulcer in 2012. She had upper and lower endoscopy that were negati ve for bleeding source in 08/2017 during episode of overt bleeding. She had a capsule endoscopy afte r that, showed some small bowel ulcerations. At that time of the colonoscopy, there was red blood in the terminal ileum suggestive of small bowel bleeding. No source could be reached by endoscope. Hy pertension and hypothyroidism. PAST SURGICAL HISTORY: Hysterectomy, hemorrhoidectomy and upper and lower endoscopy. FAMILY HISTORY: Negative for GI malignancy. SOCIAL HISTORY: She quit drinking in 08/2017 most recently. She quit smoking in 2014. No drugs. ALLERGIES: ACETAMINOPHEN. CURRENT OUTPATIENT MEDICATIONS: Include Synthroid, spironolactone, Lasix, Protonix, Klor-Con. REVIEW OF SYSTEMS: Negative x10 systems reviewed except as stated in the history of present illness. PHYSICAL EXAMINATION: VITAL SIGNS: Temperature 97.7, pulse 74, blood pressure 102/55. GENERAL: She is in no acute distress, alert and oriented x3. HEENT: Eyes have no scleral icterus. Oropharynx is clear, without lesions. NECK: No cervical or supraclavicular lymphadenopathy. LUNGS: Clear to auscultation bilaterally. HEART: Regular rate and rhythm without murmur. ABDOMEN: Soft, nontender, nondistended. Bowel sounds are present. EXTREMITIES: No lower extremity edema. NEUROLOGIC: Reveals no asterixis. LABORATORY DATA: White blood cell count 6.0; hemoglobin is 7.5 after 1 unit transfusion, prior to tr ansfusion it was 7.1; platelet counts 124. INR 1.2, creatinine is 0.7, bilirubin 0.7, AST 17, ALT 10 , alkaline phosphatase 98, albumin 3.2. IMPRESSION: 1. Recurrent overt obscure GI bleed. Upper and lower endoscopies were negative for bleeding source in August. Esophagogastroduodenoscopy was negative for varices or portal hypertensive gastropathy. She did have a few ulcerations in the distal ileum by a capsule endoscopy; however, colonoscopy into the last 15 cm of the terminal ileum was normal. 2. Anemia of acute blood loss. 3. Cirrhosis of the liver secondary to alcohol abuse. Her last drink was around last 08/2017. She has been vaccinated for hepatitis A and hepatitis B previously. She has a history of ascites, but no significant ascites by exam now. No encephalopathy currently. She is up to date on her hepatoma sc reening as an outpatient. RECOMMENDATIONS: 1. We will obtain a nuclear medicine abdominal bleeding scan. 2. Transfuse another unit of blood now.
[2017-12-14] MEDS: Sodium Chloride 0.9% 1,000 ML IV SCH ×3 (04:03→21:06)
[2017-12-14] MEDS: Levothyroxine Sodium 50 MCG TAB PO SCH (05:33)
[2017-12-14 06:47] LABS: #Basophils 0.1 thou/uL (0.0-0.2); #Eosinphils 0.3 thou/uL (0.0-0.7); #Lymphocytes 1.7 thou/uL (1.20-3.40); #Monocytes 0.4 thou/uL (0.11-0.59); #Neutrophils 2.3 thou/uL (1.40-6.50); %Basophils 1.3 % (0.0-1.0); %Eosinophils 7.1 % (0.0-10.0); %Lymphocytes 35.2 % (21.0-51.0); %Monocytes 8.9 % (0.0-10.0); %Neutrophils 47.5 % (42.0-75.0); Hemoglobin 6.9 g/dL (12.0-16.0); Mean Corpuscular HGB CONC 33.4 g/dL (32.0-36.0); Mean Corpuscular Hemoglobin 27.2 pg (27.0-31.0); Mean Corpuscular Volume 81.5 fl (81.0-99.0); Platelet Count 100 thou/uL (130-400); RBC Distribution Width 19.1 % (11.5-14.5); Red Blood Cell (RBC) Count 2.55 mill/uL (4.20-5.40); White Blood Cell (WBC) Count 4.9 thou/uL (4.8-10.8)
[2017-12-14 06:50] LABS: Anion Gap 9 mmol/L (10-20); BUN (Urea Nitrogen) 11 mg/dL (9.8-20.1); Calc. Creatinine Clearance 89 mL/min (70-130); Calcium 8.1 mg/dL (7.8-10.44); Carbon Dioxide 19 mmol/L (23-31); Chloride 115 mmol/L (98-107); Estimated GFR-MDRD Greater than 90; Glucose 91 mg/dL (80-115); Magnesium 1.5 mg/dL (1.6-2.6); Potassium 3.8 mmol/L (3.5-5.1); Sodium 139 mmol/L (136-145)
[2017-12-14] MEDS: Pantoprazole 40 MG VIAL IVP SCH ×2 (10:03→20:35)
--- NOTE | 2017-12-14 13:43 | PDOC.PN ---
- Subjective Encounter Start Date: 12/14/17 Encounter Start Time: 10:30 -: old records requested/rev Pt seen and exmained, chart reviewe din its entirety, this is my first visit with this patient Seen by GI last night, Tagged scan ordered, neg. Since then, pt started bleeding more, 3 [facility]. Case discussed with Dr Wells, delayed image requested. Hgb down, got 2 units overnight, 6.9 today, 2 more units ordered Some dizziness or lightheadedness with standing. No F/c, no N/V, no hematemesis , no melena, +hematochezia, dark red and thin' 10 point ROS performed and neg for all systems except as above - Objective Resuscitation Status: Resuscitation Status FULL:Full Resuscitation Vital Signs & Weight: Vital Signs (12 hours) Temp Pulse Pulse Pulse Resp BP BP 12/14/17 13:05 97.4 F L 82 16 101/57 L 12/14/17 12:50 98.3 F 93 16 103/53 L 12/14/17 11:24 97.0 F L 79 16 107/51 L 12/14/17 08:20 98.1 F 84 16 12/14/17 08:00 98.1 F 84 16 12/14/17 03:48 98.0 F 72 75 18 95/51 L 85/50 L 12/14/17 03:10 98.7 F 78 16 BP BP BP Pulse Ox 12/14/17 13:05 12/14/17 12:50 98 12/14/17 11:24 97 12/14/17 08:20 97 12/14/17 08:00 97/52 L 98/56 L 104/51 L 97 12/14/17 03:48 96 12/14/17 03:10 98/60 98 Weight Weight 137 lb I&O: 12/13/17 12/14/17 12/15/17 06:59 06:59 06:59 Intake Total 1857 0 Output Total 2700 Balance -843 0 Result Diagrams: 12/14/17 05:56 12/14/17 05:56 Radiology Reviewed by me: Yes EKG Reviewed by me: Yes Phys Exam - Physical Examination Constitutional: NAD pale HEENT: PERRLA, moist MMs, sclera anicteric, oral pharynx no lesions Neck: no nodes, no JVD, supple, full ROM Respiratory: no wheezing, no rales, no rhonchi, clear to auscultation bilateral Cardiovascular: RRR, no significant murmur, no rub Gastrointestinal: soft, non-tender, no distention, positive bowel sounds Musculoskeletal: no edema, pulses present Neurological: non-focal, normal sensation, moves all 4 limbs Lymphatic: no nodes Psychiatric: normal affect, A&O x 3 Skin: no rash, normal turgor, cap refill <2 seconds Dx/Plan (1) Hematochezia Code(s): K92.1 - MELENA Status: Acute Comment: red blood per rectum, GI suspect small bowel bleed, pt had extensive workup in . neg colon, EGD, pillcam. follow up on delayed images (2) Orthostasis Code(s): I95.1 - ORTHOSTATIC HYPOTENSION Status: Acute Comment: vitals this morning normal, though pt still with some symptoms (3) Alcohol abuse Code(s): F10.10 - ALCOHOL ABUSE, UNCOMPLICATED Status: Chronic Comment: not a drop since june 2017 per patient (4) Alcoholic cirrhosis of liver without ascites Code(s): K70.30 - ALCOHOLIC CIRRHOSIS OF LIVER WITHOUT ASCITES Status: Chronic (5) Hypothyroidism Code(s): E03.9 - HYPOTHYROIDISM, UNSPECIFIED Status: Chronic Qualifiers: Hypothyroidism type: acquired Qualified Code(s): E03.9 - Hypothyroidism, unspecified (6) Acute blood loss anemia Code(s): D62 - ACUTE POSTHEMORRHAGIC ANEMIA Status: Acute Comment: tranfuse 2 more untis today, serial H/H - Plan cont current plan of care, DVT proph w/SCDs * .
--- NOTE | 2017-12-14 14:11 | NM ---
PRELIMINARY REPORT/[facility]/EMERGENCY AFTER HOURS PROCEDURE: EXAM: NM GI Bleeding Scan CLINICAL HISTORY: 62 years old, female; Signs and symptoms; Symptoms: Gi bleed TECHNIQUE: Frontal images of the abdomen and pelvis were obtained over 60 minutes following the intravenous admi nistration of [id number] red blood cells. COMPARISON: No relevant prior studies available. FINDINGS: Stomach and bowel: Presumed free pertechnetate activity accumulation in the stomach No active GI blee ding. IMPRESSION: No definite active GI bleeding. Presumed free pertechnetate activity in the stomach Thank you for allowing us to participate in the care of your patient. Dictated and Authenticated by: Nino Ortiz MD 12/14/2017 12:40 AM Central Time ([place] & [place]) FINAL REPORT RADIONUCLIDE GI BLEEDING STUDY: DATE: 12/13/17. TIME: Performed on emergency basis at 2359 hours. FINDINGS: The findings agree with the preliminary report from [facility]. Images include the entirety o f the heart and the right subclavian vein from the injection. Uptake over the mid abdomen is consist ent with the stomach and does not persist as would be expected with an ongoing bleed. Exam was reviewed with Dr. Wells. CODE CR POS: [facility]
--- NOTE | 2017-12-14 15:51 | PRG ---
DATE OF SERVICE: 12/14/2017 SUBJECTIVE: Ms. Rapp had 3 more bloody stools this morning. She has no abdominal pain. OBJECTIVE: VITAL SIGNS: Temperature 97.4, pulse 79 and blood pressure 101/57. GENERAL: She is in no acute distress, awake and alert. LUNGS: Clear to auscultation bilaterally. HEART: Regular rate and rhythm. ABDOMEN: Soft, nontender and nondistended. Bowel sounds are present. EXTREMITIES: No lower extremity edema. IMPRESSION: Overt obscured gastrointestinal bleed. She had prior esophagogastroduodenoscopy and col onoscopy that were negative for a source. Capsule endoscopy showed some ulcerations in the distal sm all bowel. Her hemoglobin dropped further with recurrent bleeding this morning. RECOMMENDATIONS: 1. Transfusion. 2. We will obtain some delayed images from the bleeding scan. The initial images from the bleeding scan last night did not show any active bleeding. 3. We will plan push enteroscopy tomorrow morning if the bleeding scan does not direct this anywhere else specifically.
--- NOTE | 2017-12-14 17:35 | NM ---
NUCLEAR MEDICINE BLEEDING SCAN: Comparison: 12-13-17 at 11:59 p.m. History: Ongoing GI bleed. Evaluate for source of hemorrhage. Technique: Patient was brought back down to the Nuclear Medicine department after continued ongoing G I bleeding. Images were obtained of the abdomen. FINDINGS: There is radiopharmaceutical throughout loops of both large and small bowel consistent a GI bleed whi ch occurred since the GI bleed scan was started. The prior abdominal uptake in the upper abdomen coul d represent free tech uptake by the stomach. This could represent hemorrhage within a loop of small b owel. IMPRESSION: Patient has an ongoing GI bleed but the source is localizable. Dr. Wells notified of the findings at 4:20 p.m. on 12-14-17. POS: [facility]
[2017-12-14 17:36] LABS: Hemoglobin 9.6 g/dL (12.0-16.0)
[2017-12-14 23:20] LABS: Hemoglobin 6.5 g/dL (12.0-16.0)
[2017-12-15] MEDS: Levothyroxine Sodium 50 MCG TAB PO SCH (05:16)
[2017-12-15 05:41] LABS: #Eosinphils 0.2 thou/uL (0.0-0.7); #Lymphocytes 1.1 thou/uL (1.20-3.40); #Monocytes 0.3 thou/uL (0.11-0.59); %Basophils 0.9 % (0.0-1.0); %Lymphocytes 22.8 % (21.0-51.0); %Monocytes 6.7 % (0.0-10.0); %Neutrophils 64.6 % (42.0-75.0); Hemoglobin 7.3 g/dL (12.0-16.0); Mean Corpuscular HGB CONC 33.2 g/dL (32.0-36.0); Mean Corpuscular Volume 84.2 fl (81.0-99.0); Mean Platelet Volume 8.3 fL (7.4-10.4); PLT Morphology Comment Appears Decreased; Platelet Count 80 thou/uL (130-400); RBC Distribution Width 17.1 % (11.5-14.5); Red Blood Cell (RBC) Count 2.59 mill/uL (4.20-5.40); White Blood Cell (WBC) Count 4.6 thou/uL (4.8-10.8)
[2017-12-15 05:53] LABS: Anion Gap 9 mmol/L (10-20); BUN (Urea Nitrogen) 11 mg/dL (9.8-20.1); Calc. Creatinine Clearance 94 mL/min (70-130); Calcium 7.9 mg/dL (7.8-10.44); Carbon Dioxide 20 mmol/L (23-31); Chloride 113 mmol/L (98-107); Estimated GFR-MDRD Greater than 90; Glucose 92 mg/dL (80-115); Magnesium 1.3 mg/dL (1.6-2.6); Potassium 3.6 mmol/L (3.5-5.1); Sodium 138 mmol/L (136-145)
[2017-12-15] MEDS: Pantoprazole 40 MG VIAL IVP SCH (09:24)
[2017-12-15] MEDS ORDERED: Magnesium 2 GM/NS 0.9% 100 ML 2 GM in Premix Bag 1 BAG IVPB SCH (13:15)
[2017-12-15] MEDS ORDERED: Promethazine HCl 25 MG/ML VIAL IM PRN (14:22)
[2017-12-15] MEDS ORDERED: Ondansetron HCl/PF 4 MG/2 ML Vial IVP PRN (14:22)
[2017-12-15] MEDS ORDERED: Promethazine HCl 25 MG/ML VIAL SLOW IVP PRN (14:22)
[2017-12-15] MEDS ORDERED: PROPOFOL 200 MG/20 ML VIAL ONE (15:31)
--- NOTE | 2017-12-15 17:56 | OP ---
DATE OF PROCEDURE: 12/15/2017 PROCEDURE: Push enteroscopy with esophagogastroduodenoscopy. PREOPERATIVE DIAGNOSES: Obscure overt gastrointestinal bleeding and anemia of acute blood loss. She had a nuclear medicine bleeding scan that showed on delayed images red blood in the small bowel and colon. However, no focal site was identified for active bleeding during the initial images of the fi rst couple of hours. The delayed images were done the next day. PROCEDURE IN DETAIL: Informed consent was obtained from the patient. She was sedated with total int ravenous anesthesia. The bite block was placed and the endoscope was advanced easily to the second p ortion of the duodenum and retroflexion was performed in the stomach. The esophagus was normal. The GE junction was normal. The stomach was normal including retroflexed views. The pylorus and first and second portions of the duodenum were normal. Exchange was made for a colonoscope. The colonosco pe was then advanced well into the proximal jejunum. No active bleeding source or stigmata of recent bleeding was seen. IMPRESSION: Normal EGD and push enteroscopy to the proximal jejunum. RECOMMENDATIONS: Plan referral for outpatient balloon enteroscopy when she is stable for discharge.
[2017-12-15] MEDS ORDERED: Magnesium Sulfate 3 GM in Sodium Chloride 0.9% 100 ML IVPB SCH (20:00)
[2017-12-15] MEDS: Sodium Chloride 0.9% 1,000 ML IV SCH (20:37)
--- NOTE | 2017-12-15 21:20 | PDOC.PN ---
- Subjective Encounter Start Date: 12/15/17 Encounter Start Time: 20:30 Patient seen and examined. Had BRBPR earlier - after EGD. No overnight events - Objective Resuscitation Status: Resuscitation Status FULL:Full Resuscitation MAR Reviewed: Yes Vital Signs & Weight: Vital Signs (12 hours) Temp Pulse Resp BP Pulse Ox 12/15/17 16:15 98.9 F 82 18 104/54 L 99 Weight Weight 138 lb 4 oz I&O: 12/14/17 12/15/17 12/16/17 06:59 06:59 06:59 Intake Total 1857 2920 1715 Output Total 2700 1400 1600 Balance -843 1520 115 Result Diagrams: 12/15/17 04:15 12/15/17 04:15 EKG Reviewed by me: Yes (Tele SR) Phys Exam - Physical Examination Constitutional: NAD Respiratory: no wheezing, no rhonchi Cardiovascular: RRR, no rub Gastrointestinal: soft, non-tender, positive bowel sounds Musculoskeletal: no edema Neurological: non-focal, moves all 4 limbs Dx/Plan - Plan DVT proph w/SCDs IMPRESSION: 1. GI bleeding s/p 5 units PRBC. No active bleeding on EGD/Push enteroscopy 2. Acute blood loss Anemia 3. Alcoholic Cirrhosis with thrombocytopenia 4. Hypomagnesemia 5. Hypothyroidism 6. Orthostatic hypotension - improved/ h/o alcoholism until Aug 2017 PLAN: * Repeat HH * Transfuse if Hb <7 * HH in AM * GI following. * Replace Magnesium Review of Systems - Review of Systems Respiratory: negative: Cough, Dry, Shortness of Breath, Hemoptysis, SOB with Excertion, Pleuritic Pain, Sputum, Wheezing Cardiovascular: negative: chest pain, palpitations, orthopnea, paroxysmal nocturnal dyspnea, edema, light headedness - Medications/Allergies Allergies/Adverse Reactions: Allergies Allergy/AdvReac Type Severity Reaction Status Date / Time No Known Allergies Allergy Verified 12/13/17 15:11 Medications: Current Medications Acetaminophen (Tylenol) 650 mg PO Q4H PRN PRN Reason: Headache/Fever or Pain Hydrocodone Bitart/Acetaminophen ([place] 5/325) 1 tab PO Q4H PRN PRN Reason: Moderate Pain (4-6) Sodium Chloride (Normal Saline 0.9%) 1,000 mls @ 75 mls/hr IV .[id number] KIMBER Last Admin: 12/15/17 20:37 Dose: 1,000 mls Levothyroxine Sodium (Synthroid) 50 mcg PO 0600 KIMBER Last Admin: 12/15/17 05:16 Dose: 50 mcg Ondansetron HCl (Zofran Odt) 4 mg PO Q6H PRN PRN Reason: Nausea/Vomiting Pantoprazole Sodium (Protonix) 40 mg PO DAILY KIMBER
[2017-12-15 21:22] LABS: Hemoglobin 7.9 g/dL (12.0-16.0)
[2017-12-16] MEDS: Levothyroxine Sodium 50 MCG TAB PO SCH (05:24)
[2017-12-16 05:38] LABS: Hemoglobin 7.1 g/dL (12.0-16.0); Platelet Count 115 thou/uL (130-400)
[2017-12-16] MEDS: Sodium Chloride 0.9% 1,000 ML IV SCH ×3 (12:26→21:35)
--- NOTE | 2017-12-16 14:15 | PRG ---
DATE OF SERVICE: 12/16/2017 SUBJECTIVE: Ms. Rpap had another red bloody stool today. Her hemoglobin was 7.1 today. This is down from 7.3 yesterday despite having received 1 unit transfusion. PHYSICAL EXAMINATION: VITAL SIGNS: Temperature 98.1, pulse 85, blood pressure 103/67. GENERAL: She is in no acute distress, alert and oriented x3. LUNGS: Clear to auscultation bilaterally. HEART: Regular rate and rhythm. ABDOMEN: Soft, nontender, nondistended. Bowel sounds are present. EXTREMITIES: No lower extremity edema. LABORATORY DATA: Hemoglobin 7.1 today. IMPRESSION: Small bowel overt obscured GI bleed. Push enteroscopy was negative. EGD and colonoscop y were negative previously. Capsule endoscopy showed some ulcerations in the distal small bowel, but the last 15 cm of the ileum were normal by colonoscopy. RECOMMENDATIONS: 1. Transfusion. 2. Transfer to a facility that can perform an inpatient balloon enteroscopy. If it is not possible, then when she stops bleeding, then outpatient referral for this procedure can be performed. My conc minal is that she now has had continued ongoing active bleeding. She has been hemodynamically stable.
[2017-12-16 14:16] LABS: Hemoglobin 6.7 g/dL (12.0-16.0)
[2017-12-16 21:39] LABS: Hemoglobin 6.5 g/dL (12.0-16.0)
--- NOTE | 2017-12-16 23:39 | PDOC.PN ---
- Subjective Encounter Start Date: 12/16/17 Encounter Start Time: 09:30 Patient seen and examined. Had a very small BRB last night. No overnight events. No CP/lightheadednes - Objective Resuscitation Status: Resuscitation Status FULL:Full Resuscitation Vital Signs & Weight: Vital Signs (12 hours) Temp Pulse Pulse Resp BP BP BP 12/16/17 20:20 98.1 F 82 18 101/51 L 12/16/17 17:35 98.4 F 86 18 97/63 12/16/17 17:08 98.1 F 87 18 104/56 L 12/16/17 13:25 98.1 F 85 18 103/67 12/16/17 13:20 98.1 F 85 18 12/16/17 11:50 98.9 F 83 20 113/59 L Pulse Ox 12/16/17 20:20 98 12/16/17 17:35 99 12/16/17 17:08 100 12/16/17 13:25 100 12/16/17 13:20 12/16/17 11:50 100 Weight Weight 138 lb I&O: 12/15/17 12/16/17 12/17/17 06:59 06:59 06:59 Intake Total 2920 2540 970 Output Total 1400 2800 650 Balance 1520 -260 320 Result Diagrams: 12/16/17 21:30 12/15/17 04:15 EKG Reviewed by me: Yes (Tele SR) Phys Exam - Physical Examination Constitutional: NAD Respiratory: no wheezing, no rhonchi Cardiovascular: RRR, no rub Gastrointestinal: soft, non-tender, positive bowel sounds Musculoskeletal: no edema Dx/Plan - Plan DVT proph w/SCDs IMPRESSION: 1. GI bleeding s/p 5 units PRBC. No active bleeding on EGD/Push enteroscopy 2. Acute blood loss Anemia 3. Alcoholic Cirrhosis with thrombocytopenia 4. Hypomagnesemia 5. Hypothyroidism 6. Orthostatic hypotension - improved/ h/o alcoholism until Aug 2017 PLAN: * Repeat HH later today * Transfuse if Hb <7 * HH in AM * GI following. * Transfer medical * Balloon enteroscopy as outpt Review of Systems - Review of Systems Cardiovascular: negative: chest pain, palpitations, orthopnea, paroxysmal nocturnal dyspnea, edema, light headedness Gastrointestinal: negative: Nausea, Vomiting, Abdominal Pain, Diarrhea, Constipation, Melena, Hematochezia - Medications/Allergies Allergies/Adverse Reactions: Allergies Allergy/AdvReac Type Severity Reaction Status Date / Time No Known Allergies Allergy Verified 12/13/17 15:11 Medications: Current Medications Hydrocodone Bitart/Acetaminophen (Deaver 5/325) 1 tab PO Q4H PRN PRN Reason: Moderate Pain (4-6) Sodium Chloride (Normal Saline 0.9%) 1,000 mls @ 30 mls/hr IV .Q24H KIMBER Last Admin: 12/16/17 21:35 Dose: 1,000 mls Levothyroxine Sodium (Synthroid) 50 mcg PO 0600 KIMBER Last Admin: 12/16/17 05:24 Dose: 50 mcg Pantoprazole Sodium (Protonix) 40 mg PO DAILY [facility] Last Admin: 12/16/17 08:48 Dose: 40 mg Sodium Chloride (Flush - Normal Saline) 10 ml IVF PRN PRN PRN Reason: Saline Flush Last Admin: 12/16/17 21:36 Dose: 10 ml
--- NOTE | 2017-12-16 23:44 | PDOC.EVN ---
Event Note - Event Note Event Note: Pt developed several episode of BRBPR. HH 6.7. Will transfuse [address] Wells initiated transfer to Tertiary care. I d/w poultry slaughterer at [facility] - Dr Ansari who has accepted the patient. Patient will be transferred probably in AM if bed available. Repeat HH after transfusion. Transfer to [facility] for close monitoring.
[2017-12-17 02:42] VITALS: TEMP 98.1
[2017-12-17 03:40] VITALS: BP 104/56
--- NOTE | 2017-12-17 12:48 | DIS ---
DATE OF DISCHARGE: 12/17/2017 DISCHARGE DISPOSITION: Transfer to [facility] for higher level of care. BRIEF HOSPITAL COURSE: The patient is a 62-year-old female with cirrhosis, presented to the hospital with bright red blood per rectum on 12/12/2017. Her H&H on admission was 7.1. The bleeding scan on the 1st day was consistent with probable bleeding within the loops of small bowel. She underwent a push enteroscopy with EGD on 12/15/2017 that was negative for any source of bleeding. Dr. Wells cristopher mmended transfer to [facility] for higher level of care. She received total of 7 units o f packed red blood cells this hospitalization. INPATIENT CONSULTANTS: Dr. Wells. Please refer to the history and physical and consultation notes for detail. FINAL DIAGNOSES: 1. Gastrointestinal bleeding, status post EGD and push enteroscopy without any source. 2. Acute blood loss anemia. 3. Alcoholic cirrhosis. 4. Thrombocytopenia. 5. Hypomagnesemia. 6. Hypothyroidism. 7. Orthostatic hypotension, improved. 8. History of alcoholism until 08/2017.
== END 2017-12-17 02:55 | disposition short-term general hospital (02) | DRG 378 ==
LOC: ERS 21:46 → ERHOLD 23:58 → 2NO 12-13 14:58 → T4-B 12-16 13:10 → IMCU/EMU 12-16 19:41
PROVIDERS: ADMIT Hospitalist; ATTEND Hospitalist
PROC: 30233N1 Transfusion of Nonautologous Red Blood Cells into Peripheral Vein, Percutaneous Approach (ICD-10-PCS; principal; 2017-12-12)
PROC: 0DJ08ZZ Inspection of Upper Intestinal Tract, Via Natural or Artificial Opening Endoscopic (ICD-10-PCS; 2017-12-15)
PROC: 0DJD8ZZ Inspection of Lower Intestinal Tract, Via Natural or Artificial Opening Endoscopic (ICD-10-PCS; 2017-12-15)
PROC: 0DJ08ZZ Inspection of Upper Intestinal Tract, Via Natural or Artificial Opening Endoscopic (ICD-10-PCS; 2017-12-15)
DX: K92.2 Gastrointestinal hemorrhage, unspecified (principal); D62 Acute posthemorrhagic anemia; K63.3 Ulcer of intestine; D69.6 Thrombocytopenia, unspecified; I50.9 Heart failure, unspecified; E83.42 Hypomagnesemia; K70.30 Alcoholic cirrhosis of liver without ascites; E03.9 Hypothyroidism, unspecified; Z87.891 Personal history of nicotine dependence; I95.1 Orthostatic hypotension
CPT/HCPCS: 36415; 36430; 78278; 80048; 80053; 82274; 83735; 85014; 85018; 85025; 85049; 85610; 85730; 86850; 86900; 86901; 96360; 96361; A9604; C9113; J2704; J3475; J7050; P9016

== ENCOUNTER 2018-03-11 23:50 | Inpatient (IN) | payer OTHER ==
[2018-03-12] MEDS ORDERED: Pantoprazole 40 MG VIAL ONE (00:10)
[2018-03-12] MEDS ORDERED: Octreotide Acetate 50 MCG/ML AMP ONE (00:41)
[2018-03-12 00:56] LABS: #Eosinphils 0.6 thou/uL (0.0-0.7); #Lymphocytes 1.6 thou/uL (1.20-3.40); #Monocytes 0.6 thou/uL (0.11-0.59); #Neutrophils 4.3 thou/uL (1.40-6.50); %Basophils 0.7 % (0.0-1.0); %Eosinophils 7.9 % (0.0-10.0); %Monocytes 8.5 % (0.0-10.0); %Neutrophils 60.9 % (42.0-75.0); Hemoglobin 11.4 g/dL (12.0-16.0); Mean Corpuscular HGB CONC 32.7 g/dL (32.0-36.0); Mean Corpuscular Hemoglobin 28.3 pg (27.0-31.0); Mean Corpuscular Volume 86.5 fl (81.0-99.0); Mean Platelet Volume 7.9 fL (7.4-10.4); Platelet Count 107 thou/uL (130-400); RBC Distribution Width 13.8 % (11.5-14.5); Red Blood Cell (RBC) Count 4.03 mill/uL (4.20-5.40); White Blood Cell (WBC) Count 7.1 thou/uL (4.8-10.8)
[2018-03-12] MEDS ORDERED: Octreotide Acetate 1,250 MCG in Sodium Chloride 0.9% 250 ML 250 ML IVPB SCH ×2 (01:00→18:00)
[2018-03-12 01:16] LABS: ALT (SGPT) 13 U/L (8-55); AST (SGOT) 18 U/L (5-34); Albumin 3.4 g/dL (3.4-4.8); Alkaline Phosphatase 115 U/L (40-150); Anion Gap 12 mmol/L (10-20); BUN (Urea Nitrogen) 18 mg/dL (9.8-20.1); Bilirubin, Total 0.7 mg/dL (0.2-1.2); CK (CPK) 189 U/L (29-168); Calc. Creatinine Clearance 0 mL/min (70-130); Calcium 8.7 mg/dL (7.8-10.44); Carbon Dioxide 23 mmol/L (23-31); Chloride 107 mmol/L (98-107); Estimated GFR-MDRD 74; Globulin 2.8 g/dL (2.4-3.5); Glucose 117 mg/dL (80-115); Lipase 35 U/L (8-78); Potassium 3.9 mmol/L (3.5-5.1); Protein, Total 6.2 g/dL (6.0-8.3); Sodium 138 mmol/L (136-145)
[2018-03-12 01:44] LABS: Bilirubin Negative (Negative); Blood, Urine Negative (Negative); Clarity CLOUDY (Clear); Glucose, Urine (Dipstick) Negative (Negative); Leukocyte Small (Negative); Nitrite Negative (Negative); Protein, Urine (Dipstick) Negative (Neg-Trace); Specific Gravity, Urine 1.025 (1.002-1.036); Urobilinogen 0.2 mg/dL (0.2-1.0)
--- NOTE | 2018-03-12 01:44 | PDOC.FPRHP ---
- History of Present Illness Chief Complaint: Lower GI Bleed History of Present Illness: 62 yo caucassion female, w/ pmh of liver cirrhosis, Recurrent GI bleeds in which she went to [place] and had something clipped a few months ago, comes in with chief complaint of bleeding per rectum. Pt reports having upper abdominal pain earlier in the afternoon today with pain radiating to her back. Describes pain as sharp shooting pain. Pain made worse with bending over. The pain later on in the day then would migrate to her lower abdominal quadrant. Pain described as same. She then at a pizza for dinner around 6:00. Then around 8:30 she had her first episode of bleeding per rectum. She reports a small amount. She has since had 3 small bloody stools per rectum. She says pain has resolved since the bleeding has started. Pt has recent extensive hx of GI bleeds with sx anemia in recent past. She was told any time she has a bleed to come to the hospital so her she is. Pt denies any fever/chills. Denies any n/v/d/c. Denies any chest pain or SOB. Denies feeling weak, lightheaded or dizzy at this time. Pt reports having some increased swelling in her lower extremeties bilaterally. I asked about her belly being more distended than usual. She said she has put on weight the last few months but the belly has not acutely swollen up. - Allergies/Adverse Reactions Allergies Allergy/AdvReac Type Severity Reaction Status Date / Time acetaminophen [From Tylenol] Allergy Verified 03/12/18 03:19 - Home Medications Medication Instructions Recorded Confirmed Type Cholecalciferol (Vitamin D3) 400 unit PO DAILY 08/14/17 03/12/18 History [Vitamin D3] Furosemide 20 mg PO DAILY 08/14/17 03/12/18 History Iron 18 mg PO DAILY 08/14/17 03/12/18 History Levothyroxine Sodium [Tirosint] 50 mcg PO DAILY 08/14/17 03/12/18 History Potassium Chloride 20 meq PO DAILY 08/14/17 03/12/18 History Spironolactone [Aldactone] 50 mg PO DAILY 08/14/17 03/12/18 History Lactulose 10 gm PO DAILY PRN 12/13/17 03/12/18 History Pantoprazole Sodium [Protonix] 20 mg PO DAILY 12/13/17 03/12/18 History Comments: Protonix she is taking 80 mg BID - History PMHx: HTN, Hypothyroidism, Alcoholic cirrhosis, Iron Defeciency Anemia, Hiatal Hernia, Hx of H. pylori-associated gastric ulcer PSHx: Hysterectomy and Hemorrhoid banding. Had a balloon EGD in [place] back in Dec 2017. Says that they found a bleeding source and clipped it at that time FHx: Mom: Diabetes Social: Previous 1/2 ppd smoker at least 20 years, quit 1 year ago. Alcohol use , 6-12 beers a day, quit a year ago. No illicit drug use. - Review of Systems General: denies: fever/chills, weight/appetite/sleep changes, night sweats, fatigue Eyes: denies: eye pain, vision changes ENT: denies: nasal congestion, rhinorrhea Respiratory: denies: cough, congestion, shortness of breath, exercise intolerance Cardiovascular: reports: edema (swelling in both her legs bilaterally). denies : chest pain, palpitation, orthopnea Gastrointestinal: reports: abdominal pain, GI bleeding (per rectum). denies: nausea, vomiting, diarrhea, constipation Genitourinary: denies: incontinence, dysuria, polyuria, discharge Skin: denies: rashes, lesions, jaundice Musculoskeletal: denies: pain, tenderness, stiffness, swelling Neurological: denies: numbness, syncope, weakness Psychological: denies: anxiety, depression - Vital signs BP: 105/64 HR: [81] RR: [18] Tmax: 98.7 Pox: 96% on RA Wt: [64 kg] - Physical Exam Constitutional: NAD, awake, alert and oriented HEENT: normocephalic and atraumatic, conjunctiva clear, grossly normal vision, normal nasal mucosa, MMM Neck: supple, no LAD, no JVD, no thyromegaly Chest: no-tender to palpation, no lesions Heart: RRR, normal S1/S2 -Heart: trace edema in LE bilaterally Lungs: CTAB, no respiratory distress, good air movement, no rales/rhonchi, no wheezing Abdomen: soft, non-tender, bowel sounds present -Abdomen: Belly distended. No ascites noted. Musculoskeletal: normal structure, normal tone Neurological: no focal deficit, normal sensation Skin: no rash/lesions, good turgor, capillary refill <2 seconds -Skin: Pt mildly jaundiced at this time Heme/Lymphatic: no purpura, no petechia Psychiatric: normal mood and affect, good judgment and insight, intact recent and remote memory FMR H&P: Results - Labs Result Diagrams: 18 05:21 03/12/18 00:43 Lab results: WBC 7.1 thou/uL (4.8-10.8) 03/12/18 00:43 Hgb 11.4 g/dL (12.0-16.0) L 03/12/18 00:43 Hct 34.9 % (36.0-47.0) L 03/12/18 00:43 MCV 86.5 fl (81.0-99.0) 03/12/18 00:43 Plt Count 107 thou/uL (130-400) L 03/12/18 00:43 Neutrophils % 60.9 % (42.0-75.0) 03/12/18 00:43 Sodium 138 mmol/L (136-145) 03/12/18 00:43 Potassium 3.9 mmol/L (3.5-5.1) 03/12/18 00:43 Chloride 107 mmol/L (98-107) 03/12/18 00:43 Carbon Dioxide 23 mmol/L (23-31) 03/12/18 00:43 BUN 18 mg/dL (9.8-20.1) 03/12/18 00:43 Creatinine 0.78 mg/dL (0.6-1.1) 03/12/18 00:43 Glucose 117 mg/dL (80-115) H 03/12/18 00:43 Calcium 8.7 mg/dL (7.8-10.44) 03/12/18 00:43 Total Bilirubin 0.7 mg/dL (0.2-1.2) 03/12/18 00:43 AST 18 U/L (5-34) 03/12/18 00:43 ALT 13 U/L (8-55) 03/12/18 00:43 Alkaline Phosphatase 115 U/L (40-150) 03/12/18 00:43 Creatine Kinase 189 U/L (29-168) H 03/12/18 00:43 Serum Total Protein 6.2 g/dL (6.0-8.3) 03/12/18 00:43 Albumin 3.4 g/dL (3.4-4.8) 03/12/18 00:43 Lipase 35 U/L (8-78) 03/12/18 00:43 FMR H&P: A/P - Problem List (1) Alcoholic cirrhosis of liver without ascites Current Visit: No Status: Chronic Code(s): K70.30 - ALCOHOLIC CIRRHOSIS OF LIVER WITHOUT ASCITES (2) Hypothyroidism Current Visit: No Status: Chronic Code(s): E03.9 - HYPOTHYROIDISM, UNSPECIFIED Qualifiers: Hypothyroidism type: acquired Qualified Code(s): E03.9 - Hypothyroidism, unspecified (3) Hematochezia Current Visit: No Status: Acute Code(s): K92.1 - MELENA Comment: red blood per rectum, GI suspect small bowel bleed, pt had extensive workup in . neg colon, EGD, pillcam. follow up on delayed images (4) Thrombocytopenia Current Visit: No Status: Acute Code(s): D69.6 - THROMBOCYTOPENIA, UNSPECIFIED - Plan GI bleed per rectum, Likely Upper GI in source -Pt has had significant recent hx of GI bleeds in which she was hospitilized. Was sent to [place] for Balloon EGD. States they clipped something there. Will request records from [facility] at this time. -Recent colonoscopy done in past reported as normal, no diverticuli or abnormality seen. -Hgb 11, stable and much higher from recent visits. Vital signs stable. Will continue to monitor and recheck CBC later today. If blood continues to drop may transfuse -Will consult GI-follow recs. Sees Dr. Wells outpatient -NPO for now -Octeotride and IV protonix for GI Bleed Abdominal Pain -Was having abdominal pain earlier in day that radiated to back. Pain resolved at this time. -Will check Lipase at this time to rule out pancreatitis. -Will consult GI -Possibly may need diagnostic SBP. No fever or chills thought Alcoholic Liver Cirrhosis -NPO for now. Plan above -Will administer Lasix IV. HTN -continue to monitor. Currently not on any meds Iron Defeciency Anemia -Hgb higher from recent visits. MCV stable -continue home iron pills. Daily CBC and check hemagrams more often if has large bleeds per rectum Hypothyroidism -continue home meds Thrombocytopenia -Due to Liver Cirrhosis. Monitor with daily CBC. FMR H&P: Upper Level - Pertinent history 62 yo WF pmhx of ETOH cirrhosis, hypothyroidism, and recurrent GI bleeds p/w several episodes of dark red blood per rectum starting at 8pm last night. Small clots passed each time Of note, patient has been hospitalized a couple over times here and in [place] over the past couple of months for this issue. Most recently, the patient had what sounds like a balloon enteroscopy with clipping of a bleeding vessel at a tertiary care center in [place]. Patient is a poor historian but it sounds like, prior to that being done, she had a significant bleeding episode requiring multiple transfusions. Patient was told by GI doctors in [place] to always come to hospital if bleeding were to recur. This bleeding event associated with transient sharp lower abdominal pain a couple of hours prior to the first bleed. Her GI doctor in [facility] is Dr. Wells. Has not followed up with any doctors since her procedure in December. - Pertinent findings Gen: well-developed, well-nourished female in no acute distress HEENT: sclera not pale or icteric, patient hard of hearing CV: rrr; no m/g/r Lungs: CTAB Abd: mildly distended, non-tender, no guarding or rebound, +BS Ext: no c/c/e, pulses palpable - Plan Date/Time: 03/12/18 0139 I, Ramirez Driver MD, have evaluated this patient and agree with findings/plan as outlined by international operations manager resident. Pertinent changes/additions are listed here. 62 yo WF w/: 1) Likely recurrent upper GI bleed. Admit to telemetry and monitor for additional bleeding overnight. Continue IV protonix (and ocreotide as a precaution although patient does not have any known variceal disease. Can likely d/c if stable in AM). Consult GI in AM. Request records from recent procedure at [facility]. Type and cross 2 units, consider transfusion if hemoglobin drops significantly on recheck of CBC or VS decompensate. Keep NPO until GI can evaluate. 2) ETOH cirrhosis. Will give IV lasix due to appearance of mild ascites. No white count, fever, or persistent abdominal pain. 3) Other chronic medical conditions: continue home regimen DVT ppx: SCDs Attending Addendum - Attending Addendum Date/Time: 03/12/18 1038 I personally evaluated the patient and discussed the management with Dr. Hernandez. I agree with the History, Examination, Assessment and Plan documented above with any addition or exceptions noted below. The patient presented with a GI bleed. She is currently on protonix and octreotide drip. GI is being consulted. Trending h/h. No need for transfusion at this time. This morning she is having bright red blood per rectum.
[2018-03-12 01:47] LABS: Bacteria/HPF None Seen HPF (None Seen); Hyaline Casts/LPF 4-6 HYALINE CAST LPF (0-3 Hyaline); Pathc Cast-AUWi Flag 0.72 (0-2.49); RBC/HPF 0-3 HPF (0-3)
[2018-03-12] MEDS ORDERED: Benzocaine (Dental) 20% 10 gm Tube TOP PRN (02:15)
[2018-03-12] MEDS ORDERED: Ondansetron HCl/PF 4 MG/2 ML Vial IVP PRN ×2 (02:35→02:41)
[2018-03-12] MEDS ORDERED: Ondansetron ODT 4 MG TAB SL PRN (02:35)
[2018-03-12] MEDS ORDERED: Acetaminophen 325 MG TAB PO PRN (02:41)
[2018-03-12] MEDS ORDERED: Acetaminophen 650 MG Suppository PR PRN (02:41)
[2018-03-12] MEDS ORDERED: Pantoprazole 80 MG, Admixture Fee 1 EACH in Sodium Chloride 0.9% 100 ML IVP SCH (02:45)
[2018-03-12] MEDS: Sodium Chloride 0.9% 1,000 ML IV SCH ×2 (02:55→12:35)
[2018-03-12 03:08] VITALS: BMI 29.4
[2018-03-12] MEDS: Pantoprazole 80 MG, Admixture Fee 1 EACH in Sodium Chloride 0.9% 100 ML IVP SCH ×2 (03:54→14:28)
[2018-03-12 05:41] LABS: #Basophils 0.1 thou/uL (0.0-0.2); #Eosinphils 0.5 thou/uL (0.0-0.7); #Lymphocytes 1.6 thou/uL (1.20-3.40); #Monocytes 0.6 thou/uL (0.11-0.59); #Neutrophils 3.6 thou/uL (1.40-6.50); %Eosinophils 7.3 % (0.0-10.0); %Lymphocytes 25.5 % (21.0-51.0); %Monocytes 8.7 % (0.0-10.0); %Neutrophils 57.5 % (42.0-75.0); Hemoglobin 10.4 g/dL (12.0-16.0); Mean Corpuscular HGB CONC 33.1 g/dL (32.0-36.0); Mean Corpuscular Volume 87.6 fl (81.0-99.0); Mean Platelet Volume 9.1 fL (7.4-10.4); Platelet Count 93 thou/uL (130-400); RBC Distribution Width 13.9 % (11.5-14.5); Red Blood Cell (RBC) Count 3.61 mill/uL (4.20-5.40); White Blood Cell (WBC) Count 6.3 thou/uL (4.8-10.8)
[2018-03-12] MEDS ORDERED: Levothyroxine Sodium 50 MCG TAB PO SCH (06:00)
[2018-03-12] MEDS ORDERED: Spironolactone 25 MG TAB PO SCH (09:00)
[2018-03-12] MEDS ORDERED: Pantoprazole 40 MG VIAL IVP SCH ×2 (09:00→21:00)
[2018-03-12] MEDS ORDERED: Furosemide 40 MG/4 ML VIAL SLOW IVP SCH (09:00)
[2018-03-12] MEDS ORDERED: Ferrous Sulfate 325 MG TAB PO SCH (09:00)
[2018-03-12] MEDS ORDERED: Cholecalciferol (Vitamin D3) 400 UNITS TAB PO SCH (09:00)
[2018-03-12 16:26] LABS: Hemoglobin 10.9 g/dL (12.0-16.0); Mean Corpuscular HGB CONC 33.1 g/dL (32.0-36.0); Mean Corpuscular Volume 87.7 fl (81.0-99.0); Mean Platelet Volume 8.1 fL (7.4-10.4); Platelet Count 92 thou/uL (130-400); RBC Distribution Width 13.8 % (11.5-14.5); Red Blood Cell (RBC) Count 3.74 mill/uL (4.20-5.40); White Blood Cell (WBC) Count 4.2 thou/uL (4.8-10.8)
[2018-03-12 18:31] LABS: Hemoglobin 10.5 g/dL (12.0-16.0); Platelet Count 90 thou/uL (130-400)
[2018-03-12] MEDS ORDERED: Dextrose 5 % And 0.9 % NaCl 1,000 ML IV SCH (19:00)
[2018-03-12 19:28] VITALS: BP 106/57; TEMP 97.8
[2018-03-12] MEDS ORDERED: Sodium Chloride 0.9% 1,000 ML IV SCH (19:45)
--- NOTE | 2018-03-13 09:26 | CON ---
DATE OF CONSULTATION: 03/12/2018 REASON FOR CONSULTATION: GI bleed. HISTORY OF PRESENT ILLNESS: Ms. Rapp is a 62-year-old female with a diagnosis of cirrhosis, who has had two significant episodes of GI bleeding before this admission, once in 08/2017 and once in . She was initially here from 06/13 to 06/17, where she presented with some red blood per rectum. She was also found to have low platelet count and cirrhosis presumptively related to alcohol. She nj d an upper and lower endoscopy that admission and had a normal EGD with no signs of varices or portal hypertensive gastropathy. The colonoscopy at that time showed fresh blood coating the johnson of term inal ileum. The distal ileum appeared normal and there was some fresh blood in the colon. When this was evacuated, there was no bleeding mucosal sites noted. Ultimately, the patient had a capsule end oscopy in the outpatient setting. It showed some small bowel ulcerations, but no overt bleeding lesi ons. She re-presented on 12/13/2017 with GI bleeding again. Ultimately, during that hospitalization , she had an EGD with deep enteroscopy. Bleeding scan showed it to be probably a small bowel bleed. At that time, she received 8 units of blood and ultimately was transferred to [facility] in [place] for small bowel enteroscopy. That study apparently was performed. She reports she had to get a coup le more units of blood there, and that they possibly clipped something in her small intestine. Revie wing the records that we requested from that hospital, there is no formal report for the small bowel enteroscopy, although the discharge summary notes an ulcer was seen in the ileum at some point and it was clipped. It is unclear, however, if that was a bleeding lesion or not. The patient had octreot louisa scan there to rule out a PUD-like tumor and it was negative. Further bleeding scans when she was acutely bleeding, which conceded with small bowel bleeding source, and she had further CT imaging th at did not show any overt malignancies or tumor. Presently this morning, she reports she had a small bloody stool yesterday and then had 3 more as the day went on. These were maroon to red. She had some mild upper abdominal pain with this, worse wit h bending over. After the third bloody stool, she presented to the emergency room secondary to bleed ing with extent of need for transfusion in the past. She states she has felt well for the day, but h as had about 3 more stools, but had last stools maroon shades. He has a small amount in the bedside c ommode. PAST MEDICAL HISTORY: Hypertension; hypothyroidism; alcoholic cirrhosis, normal drinking, hiatal her idalia; history of H pylori-associated gastric ulcer, but none seen on recent endoscopy in December of t his year. PAST SURGICAL HISTORY: Hysterectomy; enterectomy ; EGD, colonoscopy, capsule endoscopy, and small saw wel balloon enteroscopy dating from August to December of this year with possibly a bleeding source identified and treated in 12/[address] [facility], however, those records are not available. SOCIAL HISTORY: Previously smoked half a pack per day for 20 years and is not. She used to drink 6- 12 beers a day, but has not in the past year. REVIEW OF SYSTEMS: She denies any hematemesis, nausea, fever, chills, rashes, myalgias, or arthralgi as. FAMILY HISTORY: Negative for liver disease or GI malignancy. ALLERGIES: ACETAMINOPHEN. OUTPATIENT MEDICATIONS: Aldactone, Protonix, Zofran, levothyroxine, lactulose, iron, furosemide 20 m g daily, acetaminophen. The patient denies using NSAIDs. PRESENT MEDICATIONS HERE: Tylenol p.r.n., p.r.n., iron sulfate, Lasix, lactulose, Synthroid, Z ofran p.r.n., Protonix 40 mg IV drip, normal saline, and Aldactone 50. PHYSICAL EXAMINATION: VITAL SIGNS: Temperature is 98, pulse 64, blood pressure 102/59. GENERAL: She is mildly pale. LUNGS: Clear. HEART: Regular without murmurs. ABDOMEN: Soft and nontender without palpable hepatosplenomegaly. EXTREMITIES: No clubbing, cyanosis, or edema. There are no bruits auscultated. No asterixis. LABORATORY DATA: Hemoglobin is 10.5, it was 11.4 on admission; white count was 4.2 today, platelet c ount 192,000. INR 1.2. Chemistries on 03/12/2018 at 4:00 this morning, comprehensive metabolic prof ile was normal. CK was 189. AST and ALT are 18 and 13 with ammonia of 93, albumin of 3.4. AFP last admission was 7.2. ASSESSMENT: Recurrent gastrointestinal bleeding, likely small bowel. She had extensive workup here noting small bowel source last admission and was transferred to [place] after receiving 8 units of bl ood here. She reports me she received almost 25 units of blood totally. My concern is that of small bowel varices. It is unclear what was found in [place]. She was evaluated by the liver service, bu t there is only one note I see from what has been sent to us. At this time, I think that it is very unlikely we are going to control her bleeding here. We do not have TIPS available, we do not have an angiography or Interventional Radiology available for embolization, and previous endoscopies here nj ve been nonrevealing in terms of source of bleed. I have talked to the residents. I would recommend increasing octreotide to 50 mcg per hour, starting her on IV fluids, monitoring H&H. If she has ove rt hemorrhage or becomes unstable, she will need to be moved to the ICU, otherwise, she needs to be t ransferred back to tertiary facility where small bowel enteroscopy is again available for evaluation or possible Interventional Radiology to help control this bleeding. She has of note stopped bl eeding and has a relatively stable INR.
== END 2018-03-12 20:15 | disposition short-term general hospital (02) | DRG 379 ==
LOC: ERS 23:50 → 2NO 03-12 01:00
PROVIDERS: ADMIT Family Medicine; ATTEND Family Medicine
DX: K92.1 Melena (principal); I10 Essential (primary) hypertension; E03.9 Hypothyroidism, unspecified; K70.30 Alcoholic cirrhosis of liver without ascites; D50.9 Iron deficiency anemia, unspecified; D69.6 Thrombocytopenia, unspecified; Z90.710 Acquired absence of both cervix and uterus; Z87.891 Personal history of nicotine dependence
CPT/HCPCS: 36415; 36430; 80053; 81003; 81015; 82140; 82274; 82550; 83690; 85025; 86850; 86900; 86901; 87086; A4216; C9113; J1940; J2354; J7050; P9016

== ENCOUNTER 2019-01-11 08:02 | Outpatient (CLI) | payer MEDICARE, MEDICAID ==
--- NOTE | 2019-01-11 09:54 | ULT ---
HEPATIC DOPPLER ULTRASOUND: HISTORY: Cirrhosis. COMPARISON: CT abdomen and pelvis from 07/06/2018. TECHNIQUE: Real-time, dsouza-scale, color Doppler, and spectral analysis of the liver is performed. FINDINGS: The liver contour is nodular. The hepatic echotexture is very heterogeneous. The liver measures 15. 8 cm in length. No mass is appreciated. The spleen measures 8.8 cm in length. The common bile duct measures 4 mm, normal. The gallbladder is contracted. No pericholecystic fluid . Gallbladder wall thickness is normal. Sonographic Noble sign is negative. The pancreas is not well seen. There is normal flow and within the aorta, IVC, hepatic veins, and portal vein. There is slightly de creased flow within the portal vein. IMPRESSION: Hepatic cirrhosis with portal hypertension. POS: ADITHYA
== END 2019-01-11 08:03 | disposition home or self-care (01) ==
LOC: BICULT 08:02
PROVIDERS: ATTEND Internal Medicine Gastroenterology
DX: K70.31 Alcoholic cirrhosis of liver with ascites (principal); I81 Portal vein thrombosis; K72.90 Hepatic failure, unspecified without coma; K76.6 Portal hypertension
CPT/HCPCS: 76705

== ENCOUNTER 2020-08-25 12:22 | Outpatient (CLI) | payer MEDICARE, MEDICAID ==
--- NOTE | 2020-08-25 13:51 | ULT ---
US Hepatic Doppler HISTORY: Alcoholic cirrhosis COMPARISON: 07/15/2019 FINDINGS: The liver demonstrates an irregular surface consistent with cirrhosis. No focal mass or abnormal bili tim ductal dilatation is seen. The gallbladder and spleen appear normal. The visualized portions of the pancreas are normal. The common duct measures 3 mm in diameter. No free fluid is seen. There is normal flow and spectral waveforms in the hepatic, splenic, portal vasculature. IMPRESSION: Cirrhosis of the liver without evidence of hepatic mass.
== END 2020-08-25 12:23 | disposition home or self-care (01) ==
LOC: BICULT 12:22
PROVIDERS: ATTEND Internal Medicine Gastroenterology
DX: K70.31 Alcoholic cirrhosis of liver with ascites (principal); K72.90 Hepatic failure, unspecified without coma
CPT/HCPCS: 76705

== ENCOUNTER 2023-03-21 09:52 | Outpatient (CLI) | payer OTHER | END 2023-03-21 09:53 | disposition home or self-care (01) | LOC: BICULT 09:52 | PROVIDERS: ATTEND Physician Assistant Medical | DX: K70.31 Alcoholic cirrhosis of liver with ascites (principal); K72.90 Hepatic failure, unspecified without coma; K76.89 Other specified diseases of liver | CPT/HCPCS: 76705 ==

== ENCOUNTER 2023-09-26 08:26 | Outpatient (CLI) | payer OTHER | END 2023-09-26 08:27 | disposition home or self-care (01) | LOC: BICULT 08:26 | PROVIDERS: ATTEND Physician Assistant Medical | DX: K70.31 Alcoholic cirrhosis of liver with ascites (principal); K76.82 Hepatic encephalopathy | CPT/HCPCS: 76705 ==

== ENCOUNTER 2025-08-08 08:57 | Outpatient (CLI) | payer OTHER | END 2025-08-08 08:58 | disposition home or self-care (01) | LOC: MRI 08:57 | PROVIDERS: ATTEND Physician Assistant Medical | DX: K70.31 Alcoholic cirrhosis of liver with ascites (principal); K76.82 Hepatic encephalopathy | CPT/HCPCS: 74183 ==